=== PATIENT | male | born 1995 | race Caucasian/White ===

== ENCOUNTER 2017-02-18 12:51 | Inpatient (IN) | payer BC, MEDICAID ==
[~2017-02-18] VITALS: Ht 185.4 cm; Wt 81.4 kg
[2017-02-18 14:49] LABS: ALKALINE PHOSPHATASE 89 U/L (45-117); ALT/SGPT 37 U/L (12-78); ANION GAP 12 MEQ/L (8-16); AST/SGOT 29 U/L (15-37); BILIRUBIN,DIRECT 0.2 MG/DL (0.0-0.2); BILIRUBIN,TOTAL 0.8 MG/DL (0.2-1.0); BLOOD UREA NITROGEN 17 MG/DL (7-18); CALCIUM LEVEL 8.2 MG/DL (8.5-10.1); CARBON DIOXIDE LEVEL 23 MEQ/L (21-32); CHLORIDE LEVEL 99 MEQ/L (98-107); CREATININE FOR GFR 1.21 MG/DL (0.70-1.30); GLOMERULAR FILTRATION RATE > 60.0 (>60); GLUCOSE, FASTING 154 MG/DL (70-105); POTASSIUM SERUM 3.6 MEQ/L (3.5-5.1); SODIUM LEVEL 134 MEQ/L (136-145)
[2017-02-18 14:55] LABS: MEAN CORPUSCULAR HEMOGLOBIN 32.4 pg (27.0-33.0); MEAN CORPUSCULAR HGB CONC 34.8 g/dl (32.0-36.5); MEAN CORPUSCULAR VOLUME 93.1 fl (80.0-96.0); RED CELL DISTRIBUTION WIDTH 12.8 % (11.5-14.5)
[2017-02-18] MEDS ORDERED: MOM 30ML SUSPENSION UDC PO PRN (16:45)
[2017-02-18] MEDS ORDERED: MAALOX 30 ML SUSP *UDC PO PRN (16:45)
[2017-02-18] MEDS ORDERED: ACETAMINOPHEN TAB 650MG DOSE (2X325MG) PO PRN (16:45)
[2017-02-18 16:53] LABS: METHADONE URINE NEGATIVE (NEGATIVE)
[2017-02-18 18:06] VITALS: BP 128/61
[2017-02-18] MEDS: NICOTINE 21MG/24HR 1 EA TRANSDERMAL TD SCH (18:20)
[2017-02-18] MEDS: OLANZapine ORAL DISINTEGRATING TAB 5MG PO PRN (18:28)
[2017-02-18] MEDS: traZODone 50 MG TAB PO PRN (20:43)
[2017-02-19 06:27] VITALS: BP 111/58
[2017-02-19] MEDS ORDERED: MUPIROCIN 2% OINT 22 GM TUBE TOP PRN (08:45)
--- NOTE | 2017-02-19 08:52 | HPEPDOC ---
Medical History and Physical Date of Admission February 18, 2017 at 16:34 History and Physical PCP: None ATTENDING: Dr. Mike Beckford HPI: 22yoM admitted to [facility] for unspecified depressive disorder, being medically examined today. No acute medical complaints today. Pt becomes agitated with providing history. Denies any fevers, chills, weakness, fatigue, STACK, CP, SOB, cough, palpitations, abdominal pain, N/V/D or changes in bowel or bladder habits. PMHx: Bipolar disorder anxiety depression Self-mutilation PSHX: Denies SOCHX: Resides in: [place] Marital Status: Single Kids: None Employment: Unemployed Tobacco use: 2 packs per day ETOH: One beer per week Illicit Drugs: Marijuana daily IV Drug Use: Denies Tattoos done unprofessionally: Denies FAMHX: Mother: Unknown Father: , suicide when patient was 3 years old Siblings: 3 brothers, one sister Alive, unknown Children: None Unexpected deaths due to medical reasons: None. ROS: As noted in HPI, otherwise 11pt ROS of systems reviewed and remarkable only for multiple superficial cuts chest and upper arms. PE: GEN: 22yo[M, appears stated age. Well-nourished, well developed. No acute distress. Alert and oriented x 3. Agitated throughout exam. HEENT: Normocephalic, atraumatic. Pupils are equal, round, and reactive to light. Extraocular movements are intact. No nystagmus appreciated. Sclera are nonicteric. Conjunctiva without injection. Nose midline. Nasal turbinates without bogginess. EACs both patent BL. TMs both visualized and de la torre with good cone of light, no bulging or erythema. No facial asymmetry. Moist mucous membranes. Dentition fair. Pharynx pink and moist, no cobblestoning. Neck supple , trachea midline. No lymphadenopathy or thyromegaly appreciated. CHEST: Regular rate and rhythm, +S1, +S2 LUNGS: Clear to auscultation bilaterally. No wheezes, rales, or rhonchi. Breathing appears symmetric and easy. Patient is speaking in full sentences. No accessory muscle use. ABD: Round, soft, non-tender, non-distended. +Bowel sounds throughout. No rebound or guarding. No costovertebral angle tenderness. EXT: Pulses 2+ bilaterally dorsalis pedis and radial. No lower extremity edema appreciated. SKIN: [place], dry, warm. Capillary refill <2sec. No rashes. Multiple superficial lacerations across upper chest, upper arms. Minimal erythema, no drainage. NEURO: Alert and oriented x 3. Cranial nerves III-XII are intact. No focal deficits appreciated. EKG: pending. A&P: 22yoM admitted to [facility] for unspecified depressive disorder 1. Psych. Plan per Psychiatry. Obtain baseline EKG to assure the safety of psychiatric medications as they can prolong the QT interval. 2. Nicotine dependence. Patch available. 3. Superficial lacerations. dry dressing if needed. Apply bactroban BID as needed. Monitor. 4. Follow up. No Primary Care Provider. Will attempt to establish PCP on discharge. 5. Substance use. Per psychiatry. 6. Leukocytosis. Pt asymptomatic, afebrile. Recheck CBC. 7. Hyponatremia. Recheck BMP. 8. Jaden environmental health safety manager present throughout exam. Vital Signs Vital Signs Date Time Temp Pulse Resp B/P (MAP) Pulse Ox O2 Delivery O2 Flow Rate FiO2 02/19/17 06:27 97.2 96 16 111/58 (75) 02/18/17 12:52 96 Room Air Laboratory Data Labs 24H Laboratory Tests 2 02/18/17 13:57: Anion Gap 12, Glomerular Filtration Rate > 60.0, Calcium Level 8.2L, Aspartate Amino Transf (AST/SGOT) 29, Alanine Aminotransferase (ALT/SGPT) 37, Alkaline Phosphatase 89, Total Bilirubin 0.8, Direct Bilirubin 0.2, Total Protein 6.0L, Albumin 3.0L, Albumin/Globulin Ratio 1.00, Thyroid Stimulating Hormone (TSH) 2.040, Salicylates Level < 1.7L, Acetaminophen Level 3.7L, Ethyl Alcohol Level < 0.003 02/18/17 16:18: Urine Amphetamines Screen NEGATIVE, Urine Benzodiazepines Screen NEGATIVE, Urine Opiates Screen NEGATIVE, Urine Methadone Screen NEGATIVE, Urine Barbiturates Screen NEGATIVE, Urine Phencyclidine Screen NEGATIVE, Urine Cocaine Metabolite Screen NEGATIVE, Urine Cannabinoids Screen POSITIVEH CBC/BMP Laboratory Tests 02/18/17 13:57 Red Blood Count 3.62 L, Mean Corpuscular Volume 93.1, Mean Corpuscular Hemoglobin 32.4, Mean Corpuscular Hemoglobin Concent 34.8, Red Cell Distribution Width 12.8 Home Medications No Active Prescriptions or Reported Meds Allergies Coded Allergies: No Known Allergies (Unverified , 02/18/17) Marcy Crenshaw February 19, 2017 08:52
[2017-02-19] MEDS: NICOTINE 21MG/24HR 1 EA TRANSDERMAL TD SCH (09:53)
[2017-02-19 10:24] LABS: ANION GAP 4 MEQ/L (8-16); BLOOD UREA NITROGEN 10 MG/DL (7-18); CALCIUM LEVEL 9.3 MG/DL (8.5-10.1); CARBON DIOXIDE LEVEL 34 MEQ/L (21-32); CHLORIDE LEVEL 106 MEQ/L (98-107); CREATININE FOR GFR 1.28 MG/DL (0.70-1.30); GLOMERULAR FILTRATION RATE > 60.0 (>60); GLUCOSE, FASTING 66 MG/DL (70-105); SODIUM LEVEL 144 MEQ/L (136-145)
[2017-02-19 10:25] LABS: POTASSIUM SERUM 5.3 MEQ/L (3.5-5.1)
[2017-02-19 12:14] LABS: MEAN CORPUSCULAR HEMOGLOBIN 29.8 pg (27.0-33.0); MEAN CORPUSCULAR HGB CONC 34.4 g/dl (32.0-36.5); RED CELL DISTRIBUTION WIDTH 12.8 % (11.5-14.5); WHITE BLOOD COUNT 5.5 K/mm3 (4.0-10.0)
[2017-02-19 12:26] LABS: MEAN CORPUSCULAR VOLUME 87.6 fl (80.0-96.0)
[2017-02-19 18:14] VITALS: BP 136/74
[2017-02-19] MEDS: traZODone 50 MG TAB PO PRN (20:41)
[2017-02-19] MEDS: OLANZapine ORAL DISINTEGRATING TAB 5MG PO PRN (20:42)
[2017-02-19] MEDS ORDERED: risperiDONE 0.5 MG TAB PO PRN (22:30)
[2017-02-19] MEDS ORDERED: risperiDONE 2 MG TAB PO PRN (22:30)
--- NOTE | 2017-02-19 22:32 | MHHPEPDOC ---
[facility] History & Physical History and Physical DATE OF ADMISSION: February 18, 2017 at 16:34 LEGAL STATUS AT ADMISSION: 9.39 CHIEF COMPLAINT: "I just couldn't stop myself from cutting" HISTORY OF THE PRESENT ILLNESS: The patient a 22-year-old man presented to [facility] complaining that he was becoming more intensely involved in cutting point that he was worried that he was suicidal. He described that he was "not doing too good" and assess chief technology officer to bring him in for evaluation. He described that he become increasingly more anxious and had begun cutting 2 extreme degrees in order to soothe himself from his increasingly intolerable anxiety. He describes on circumstances by which he moved up to [facility] from [place], he described that he'd been speaking to a woman online and subsequently moved here to be with her but found that she was living with "crackheads". Describe that he eventually became homeless when they were evicted and was prosecuted for burglary he was sleeping in a abandoned house reportedly. He describes have defaulted with episodes of emotional apathy and depersonalization. PSYCHIATRIC ROS: Affective: The patient denies any episodes of unprovoked depressed mood associated with neurovegetative symptoms lasting longer than 2 weeks with symptoms present nearly everyday. The patient denies any episodes of euphoria/dysphoria associated with decreased need for sleep, hedonism, talkatively or impulsivity lasting longer than 5 days. Anxiety: patient does have elevated worry associated with discrete episodes panic the realization, depersonalization and doom. Trauma: the patient describes having a long history of neglect, associate with hypervigilance, remembrance and negative cognition about the future. Psychosis: patient does not appear overtly psychotic but endorse his own "inner world", he appears to have good reality testing in regards this. He denies any auditory or visual hallucinations. Personality: the patient screams equivalently positive for low functioning schizoid personality PAST PSYCHIATRIC HISTORY: Prior Psychiatric Diagnosis: depression, bipolar and anxiety as well as dissociation disorder Previous admissions: describes and for missions in the past when he was a child , with time at resident treatment facility Current Medications: none Suicide attempts: denies Psychotropic Medication History: extra numbers of medications including Seroquel , Concerta, Adderall and clonidine that is able to name. ALLERGIES: Please see below. FAMILY PSYCHIATRIC HISTORY: describes father was a schizophrenic killed himself in assisted. SOCIAL HISTORY: Early Relations:/development: character is very early abandonment at age 2 his mother, who was 14 when she had him abandon him to be found by the state. He grew up in foster care primarily. -sibling order: oldest of 3 brothers -Paternal relationships: he never knew his father, but carried around his suicide note that he eventually received from his grandmother. His mother was uninvolved in his life until he was 18. Education: graduate high school Occupational: unemployed Legal: currently on probation for burglary Martial: unmarried Economic: no social supports or social contact worker Supports: no supports the area where primary support is his grandmother Abuse/trauma: severe neglect, but denies overt physical, emotional or sexual abuse SUBSTANCE ABUSE HISTORY: smokes one pack a day of cigarettes, smokes marijuana whenever he is able to and drink socially. He denies the other illicit drugs. MEDICAL HISTORY: Severe scarring from long-term cutting MENTAL STATUS EXAMINATION: General: mildly disheveled Speech: coherent Thought processes: coherent Thought content: imaginative thoughts Abstract reasoning, and computation: intact Description of associations: intact Description of abnormal or psychotic thoughts:Denies any suicidal or homicidal ideation. Denies any auditory or visual hallucinations. Does not appear to be responding to internal stimuli. Does not appear to be endorsing any bizarre or paranoid ideation. Judgment: limited Insight: limited Orientation: alert and oriented 3 Recent and remote memory: intact Attention span and concentration: intact Fund of knowledge: adequate Mood: "okay" Affect: anxious dysphoric DIAGNOSES: 1. Unspecified anxiety disorder 2. Unspecified trauma/stressor related disorder 3. Unspecified personality disorder ASSESSMENT: a 22-year-old man with an unusual set of symptoms presents the [facility] for treatment after he was concerned with suicidal ideation. His symptomatology is quite complex and would likely need further outpatient testing to understand appropriately. PROBLEM LIST: 1. Anxiety 2. Depression 3. Substance use INITIAL TREATMENT PLAN: 1. Patient was admitted on a 9.39 legal status. 2. Complete history was obtained. 3. With patients permission, family will be contacted and database will be expanded. 4. Patients medication regimen will be reviewed and changed accordingly. -Will start risperidone 0.5 mg PRN anxiety 5. Patient will be provided with protected environment. 6. Patient will be treated with individual, group, and milieu therapies. 7. Patient will receive supportive psych-education. 8. Discharge planning will commence immediately. 9. Outpatient follow-up treatment will be strongly recommended. 10. The initial treatment plan will focus initially on: further diagnostic evaluation ESTIMATED LENGTH OF STAY: 1-5 DAYS. TIME SPENT COUNSELING AND COORDINATING INITIAL CARE: 50 minutes. Laboratory Data 24H Labs Laboratory Tests 2 02/19/17 09:51: Anion Gap 4L, Glomerular Filtration Rate > 60.0, Blood Urea Nitrogen 10, Creatinine 1.28, Sodium Level 144#, Potassium Level 5.3H, Chloride Level 106, Carbon Dioxide Level 34H, Calcium Level 9.3 CBC/BMP Laboratory Tests 02/19/17 09:51 Calcium Level 9.3 02/19/17 11:00 Red Blood Count 5.23, Mean Corpuscular Volume 87.6 #, Mean Corpuscular Hemoglobin 29.8, Mean Corpuscular Hemoglobin Concent 34.4, Red Cell Distribution Width 12.8 Medications No Active Prescriptions or Reported Meds Allergies Coded Allergies: No Known Allergies (Unverified , 02/18/17) GME ATTESTATION My preceptor for this patient encounter was physically present in the building during the encounter and was fully available. As needed, all aspects of the patient interview, examination, medical decision making process, and medical care plan development were reviewed and approved by the preceptor. Preceptor is aware and concurs with the plan as stated in the body of this note and will attest to such by his/her cosignature. JUNIOR THOMPSON DO February 19, 2017 22:32
[2017-02-20 06:52] VITALS: BP 138/63
[2017-02-20] MEDS: NICOTINE 21MG/24HR 1 EA TRANSDERMAL TD SCH (11:55)
[2017-02-20] MEDS: OLANZapine ORAL DISINTEGRATING TAB 5MG PO PRN (15:52)
--- NOTE | 2017-02-20 17:15 | MHIPNPDOC ---
[facility] Progress Note Progress Note INTERVAL HISTORY: Medication Side effects: Denies, except for sleepiness but he admits that he has been very tired and he hasn't slept on a bed for several months. He feels replenished after sleeping for several hours. Behavior: Not violent, not aggressive. Hasn't hurt himself nor others. Group Attendance: He failed to attend groups today because he slept too much Psychiatric Symptom change: He is more engaging, less guarded, less isolated. VITAL SIGNS: See below. NEW TEST RESULTS: See below CURRENT MEDICATIONS: See below. MENTAL STATUS EXAMINATION: General: Alert, cooperative, dressed in hospital clothes with good hygiene and good eye contact Speech: normal Thought processes: Intact Thought content: Goal directed, motivated for change and for staying in [place]. Talks about getting an apartment over here and getting established in this area. Abstract reasoning, and computation: Good Description of associations: Not loose Description of abnormal or psychotic thoughts: Not present Judgment: Slightly improved Insight: Slightly improved Orientation: Oriented 3 Recent and remote memory: Intact Attention span and concentration: Good Fund of knowledge: Very good Mood: "I feel much better" Affect: Less depressed, less anxious, less distant DIAGNOSES: 1. Schizoid personality disorder. 2. Borderline personality. 3. . ASSESSMENT: Patient has had a good response to medications. He has a positive attitude, is motivated because social media intern communicated to him that she might be able to find him an apartment to live and that takes away much of the anxiety that was overwhelming him Management PLAN: Will continue hospitalization until patient is stable enough to be discharged. We'll continue current medications. Medications: Zyprexa 5 mg by mouth every 4 hours when necessary for anxiety and agitation Psychotherapy: Will encourage him to attend groups Social: -- Misc: -- Disposition: He needs to continue at the inpatient mental health unit until he becomes stabilized with medications and psychotherapy TIME SPENT: 20 minutes. Vital Signs Vital Signs Date Time Temp Pulse Resp B/P (MAP) Pulse Ox O2 Delivery O2 Flow Rate FiO2 02/20/17 06:52 97.7 50 14 138/63 (88) Room Air 02/18/17 12:52 96 Laboratory Data CBC/BMP Laboratory Tests 02/20/17 13:11 Current Medications Current Medications Acetaminophen (Tylenol Tab) 650 mg Q6HP PRN PO HEADACHE or DISCOMFORT; Start at 16:45; Stop 03/20/17 at 16:44 Al Hydrox/Mg Hydrox/Simethicone (Mylanta) 30 ml Q4HP PRN PO HEARTBURN/ INDIGESTION; Start 02/18/17 at 16:45; Stop 03/20/17 at 16:44 Home Med (Med Rec Complete!) ASDIRECTED XX ; Start 02/18/17 at 13:30; Stop at 13:30; Status DC Magnesium Hydroxide (Milk Of Magnesia) 30 ml DAILYPRN PRN PO CONSTIPATION; Start 02/18/17 at 16:45; Stop 03/20/17 at 16:44 Mupirocin (Bactroban 2% Ointment) 1 dose BID PRN TOP REDNESS/IRRITATION; Start 02/19/17 at 08:45; Stop 03/21/17 at 08:44 Nicotine (Nicoderm Cq 21mg) 1 patch DAILY TD Last administered on 02/20/17 11: 55; Start 02/18/17 at 09:00; Stop 03/20/17 at 08:59 Olanzapine (ZyPREXA ZYDIS) 5 mg Q4HP PRN PO ANXIETY/AGITATION Last administered on 02/20/17 15:52; Start 02/18/17 at 18:15; Stop 03/20/17 at 18:14 Risperidone (RisperDAL) 0.5 mg Q6HP PRN PO anxiety; Start 02/19/17 at 22:30; Stop 03/21/17 at 22:29 Risperidone (RisperDAL) 2 mg Q6HP PRN PO anxiety; Start 02/19/17 at 22:30; Stop 02/19/17 at 22:30; Status DC Trazodone HCl (Desyrel) 50 mg QHSP PRN PO INSOMNIA Last administered on 20:41; Start 02/18/17 at 16:45; Stop 03/20/17 at 16:44 Allergies Coded Allergies: No Known Allergies (Unverified , 02/18/17) DENNIS HIGH MD Feb 20, 2017 17:15
[2017-02-20 18:00] VITALS: BP 146/77
--- NOTE | 2017-02-20 20:58 | ECGEPIP ---
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 NONSPECIFIC T-WAVE ABNORMALITY Electronically Signed On 02-20-2017 20:58:01 EDT by Mike Melchor
[2017-02-20] MEDS: traZODone 50 MG TAB PO PRN (21:00)
[2017-02-21 06:00] VITALS: BP 126/61
[2017-02-21] MEDS: NICOTINE 21MG/24HR 1 EA TRANSDERMAL TD SCH (09:24)
[2017-02-21 18:00] VITALS: BP 136/70
[2017-02-21] MEDS: traZODone 50 MG TAB PO PRN (21:05)
--- NOTE | 2017-02-21 21:10 | MHIPNPDOC ---
[facility] Progress Note Progress Note DATE OF SERVICE: 02/21/17 INTERVAL HISTORY: Medication Side effects: the patient reports no side effects from the risperidone as is not been taking it. Behavior/events: the patient has become more engaged in the [place] and more social. Group Attendance: has attended groups today Psychiatric Symptoms: reports that his intrusive thoughts of his face covered in blood still are problematic. Describes asleep is more normalized and that his mood is more elevated since finding out he will go to mental health housing. VITAL SIGNS: See below. NEW TEST RESULTS: See below CURRENT MEDICATIONS: See below. MENTAL STATUS EXAMINATION: General: Well dressed with good hygiene Speech: Spontaneous and fluid Thought processes: Linear and logical Thought content: rife with thoughts of the occult Abstract reasoning, and computation: Intact Description of associations: Intact Description of abnormal or psychotic thoughts: makes no threats for himself or others. Denies any auditory or visual hallucinations. Does appear to be responding to internal stimuli at times. Judgment: limited Insight: limited Orientation: Alert and orientated 3 Recent and remote memory: Intact Attention span and concentration: Intact Fund of knowledge: Adequate Mood: "okay" Affect: Euthymic with a full range DIAGNOSES: 1. Unspecified psychotic disorder. 2. Unspecified trauma/stress related disorder. 3. Sadomasochistic tendencies. ASSESSMENT: stabilizing MANAGEMENT PLAN: Medications: discontinue risperidone and start Abilify 2.5 mg nightly to control intrusive thoughts. Informed consent completed. Psychotherapy: encourage attendance Social: discharge mental health housing next week Misc: none Disposition: The patient will need of further inpatient stay to address intrusive thoughts and disposition needs. TIME SPENT: 25 minutes. Vital Signs Vital Signs Date Time Temp Pulse Resp B/P (MAP) Pulse Ox O2 Delivery O2 Flow Rate FiO2 02/21/17 18:00 98.9 78 16 136/70 (92) 02/20/17 06:52 Room Air 02/18/17 12:52 96 Current Medications Current Medications Acetaminophen (Tylenol Tab) 650 mg Q6HP PRN PO HEADACHE or DISCOMFORT; Start at 16:45; Stop 03/20/17 at 16:44 Al Hydrox/Mg Hydrox/Simethicone (Mylanta) 30 ml Q4HP PRN PO HEARTBURN/ INDIGESTION; Start 02/18/17 at 16:45; Stop 03/20/17 at 16:44 Aripiprazole (AbiLIFY) 2.5 mg QHS PO Last administered on 02/21/17 21:05; Start 02/21/17 at 21:00; Stop 03/23/17 at 20:59 Home Med (Med Rec Complete!) ASDIRECTED XX ; Start 02/18/17 at 13:30; Stop at 13:30; Status DC Magnesium Hydroxide (Milk Of Magnesia) 30 ml DAILYPRN PRN PO CONSTIPATION Last administered on 02/21/17 11:32; Start 02/18/17 at 16:45; Stop 03/20/17 at 16:44 Mupirocin (Bactroban 2% Ointment) 1 dose BID PRN TOP REDNESS/IRRITATION; Start 02/19/17 at 08:45; Stop 03/21/17 at 08:44 Nicotine (Nicoderm Cq 21mg) 1 patch DAILY TD Last administered on 02/21/17 09: 24; Start 02/18/17 at 09:00; Stop 03/20/17 at 08:59 Olanzapine (ZyPREXA ZYDIS) 5 mg Q4HP PRN PO ANXIETY/AGITATION Last administered on 02/20/17 15:52; Start 02/18/17 at 18:15; Stop 03/20/17 at 18:14 Risperidone (RisperDAL) 0.5 mg Q6HP PRN PO anxiety; Start 02/19/17 at 22:30; Stop 02/21/17 at 17:55; Status DC Risperidone (RisperDAL) 2 mg Q6HP PRN PO anxiety; Start 02/19/17 at 22:30; Stop 02/19/17 at 22:30; Status DC Trazodone HCl (Desyrel) 50 mg QHSP PRN PO INSOMNIA Last administered on 21:05; Start 02/18/17 at 16:45; Stop 03/20/17 at 16:44 Allergies Coded Allergies: No Known Allergies (Unverified , 02/18/17) GME ATTESTATION My preceptor for this patient encounter was physically present in the building during the encounter and was fully available. As needed, all aspects of the patient interview, examination, medical decision making process, and medical care plan development were reviewed and approved by the preceptor. Preceptor is aware and concurs with the plan as stated in the body of this note and will attest to such by his/her cosignature. JUNIOR THOMPSON DO Feb 21, 2017 21:10
[2017-02-22 06:04] VITALS: BP 122/53
[2017-02-22] MEDS: NICOTINE 21MG/24HR 1 EA TRANSDERMAL TD SCH (09:27)
[2017-02-22] MEDS: OLANZapine ORAL DISINTEGRATING TAB 5MG PO PRN (15:55)
[2017-02-22 18:01] VITALS: BP 121/60
[2017-02-22] MEDS: traZODone 50 MG TAB PO PRN (20:34)
--- NOTE | 2017-02-23 01:53 | IPN ---
DATE OF SERVICE: 02/22/2017 The patient today states that he continues to feel very anxious. He continues to have some suicidal thoughts, but no intent and he is able to contract for safety. He says that he slept poorly. He is having very vivid dreams. MENTAL STATUS EXAMINATION: He is alert and oriented times three. Eye contact is fair. Psychomotor activity is decreased. There is no formal thought disorder noted. He is verbally spontaneous. His mood is anxious. Affect is full range and appropriate. He is not psychotic. He continues to have some suicidal ideations. He is not homicidal. Concentration fair. Memory intact. Insight and judgment poor. DIAGNOSES: 1. Other specified anxiety disorder. 2. Borderline personality disorder. 3. Schizoid personality disorder. TREATMENT PLAN: At this point, we will further observe and evaluate this patient for continued anxiety and continued suicidal thoughts. We will continue to titrate his medications as indicated.
[2017-02-23 06:38] VITALS: BP 122/59
[2017-02-23] MEDS: NICOTINE 21MG/24HR 1 EA TRANSDERMAL TD SCH (08:37)
[2017-02-23 18:00] VITALS: BP 130/69
[2017-02-23] MEDS: traZODone 50 MG TAB PO PRN (20:19)
[2017-02-24 06:00] VITALS: BP 124/73
[2017-02-24] MEDS: NICOTINE 21MG/24HR 1 EA TRANSDERMAL TD SCH (08:52)
[2017-02-24 18:00] VITALS: BP 141/74
[2017-02-24] MEDS: QUEtiapine FUMARATE 25 MG TAB PO SCH (20:26)
--- NOTE | 2017-02-24 21:00 | IPN ---
DATE: 02/24/2017 The patient stated that he feels very well, especially after he got to know that he will get an apartment on Friday when he gets discharged from the unit. He says that this takes a lot of anxiety out of him. He denies feeling suicidal or homicidal. On the days that he has felt the urge at times to cut himself, he has been able to control himself. He continues to describe very vivid dreams. MENTAL STATUS EXAMINATION: Alert and oriented times three, with eye contact, normal speech. Thought process is intact. Thought content is negative for suicidal ideation, homicidal ideation or thought disorder. Mood and affect are not anxious and not depressed as he was when he was admitted. There is a little of anxiety, but it has decreased. His depressive symptoms also have decreased. He denies homicidal thoughts, denies suicidal thoughts, but admits that at times he feels the urge to cut himself. Attention and concentration are fair, memory recent and remote are intact. His insight and judgment are slowly improving. DIAGNOSES: 1. Unspecified anxiety disorder. 2. Borderline personality disorder. 3. Schizoid personality disorder. TREATMENT PLAN: The patient will continue to receive his current medications except for trazodone, which was discontinued because he stated that he did not like the side effects and he felt that it was not helping him sleep. Because he did not feel that trazodone was helping him sleep, he was started on Seroquel today on 75 mg by mouth at bedtime (q.h.s.) hoping that this medication will help also with his mood. Will followup tomorrow and hopefully he will continue to be stable until he is discharged on Friday. Will followup.
[2017-02-25 06:32] VITALS: BP 122/57
[2017-02-25] MEDS: NICOTINE 21MG/24HR 1 EA TRANSDERMAL TD SCH (08:14)
[2017-02-25] MEDS: OLANZapine ORAL DISINTEGRATING TAB 5MG PO PRN (10:59)
[2017-02-25] MEDS ORDERED: OLAN5ZYD PO (11:38)
[2017-02-25] MEDS ORDERED: QUET1TAB7 PO (11:38)
[2017-02-25] MEDS ORDERED: MUPI2OI TOP (11:38)
[2017-02-25] MEDS ORDERED: RISP0.5T16 PO (15:55)
[2017-02-25] MEDS: risperiDONE 0.5 MG TAB PO SCH ×2 (16:04→20:24)
[2017-02-25 18:00] VITALS: BP 132/62
[2017-02-25] MEDS: QUEtiapine FUMARATE 25 MG TAB PO SCH (20:24)
--- NOTE | 2017-02-25 21:07 | IPN ---
DATE: 02/25/2017 Evaluated the patient for the following problems: 1. Unspecified depressive disorder. 2. Borderline personality disorder. 3. Rule out schizoid personality disorder. The patient reported today feeling good and optimistic about his future. He denied having suicidal or homicidal thoughts. Denied having delusional thoughts and denied having auditory and visual hallucinations. However, he reported having a panic attack during one of the groups that he attended when he was painting something in red color. At that moment, he says that he perceived having his arms and face covered in blood, which is something that he has persistently said that he dreams about. He said that he felt very uneasy with that feeling, with that perception, and he developed the panic attack. For that reason, he abandoned the group. MENTAL STATUS EXAMINATION: The patient was alert and oriented times three. Pleasant, cooperative with good eye contact. His speech was normal. His thought process was intact. His thought content was about how he was going to handle his future life and living on his own in [place]. He denied having delusional thoughts, but admitted to feel slightly anxious after he had his panic attack. His attention and concentration were fair. His recent and remote memory were fair. His insight, judgment and impulse control have improved. MANAGEMENT PLAN: The patient will be discharged tomorrow to [facility] and they will be able to place him at an apartment once they have one available for him. In the meantime, he will have to stay at a hotel where he will have to wait until it is time for him to go to his apartment. He is going to be discharged on the following medications: - olanzapine 5 mg every four hours as needed for anxiety and agitation - Seroquel 75 mg by mouth at night - Risperdal 0.5 mg by mouth three times a day The patient will be reassessed tomorrow before he gets discharged and make sure that he is emotionally stable and that he is not a danger to himself or others. We will followup. MARITZA
[2017-02-26 05:56] VITALS: BP 131/66
[2017-02-26] MEDS: risperiDONE 0.5 MG TAB PO SCH (08:24)
[2017-02-26] MEDS: NICOTINE 21MG/24HR 1 EA TRANSDERMAL TD SCH (08:24)
--- NOTE | 2017-02-26 10:28 | MHDSPDOC ---
[facility] Discharge Summary Discharge Summary DATE OF ADMISSION: February 18, 2017 at 16:34 DATE OF DISCHARGE: February 26/2017 DISCHARGE DIAGNOSES: 1. Borderline personality disorder 2. PTSD REASON FOR ADMISSION: Patient was admitted because he he brought himself into the emergency room as he has been cutting himself more than he usually does, because his anxiety had increased too much due to the fact that he was homeless , on probation, jobless and with no social or family support in this area. CONSULTANTS INVOLVED: None TREATMENT AND PROGRESS ON THE UNIT : While at the unit the patient described feeling detached from himself in numerous locations and feeling as if his surroundings were surreal. He stated he cut himself lately almost automatically and when he didn't he was "numb". He stated that he had a previous psychiatric history and that he has been told he had different diagnoses. Some of those diagnoses were schizoaffective personality disorder, bipolar disorder and he was in treatment for ADHD with Adderall and Concerta when he was a child. His father had is a friend and and committed suicide when the patient was 3 years old and left a note for the patient that he did receive until he was a teenager after his grandmother gave it to him. His mother abandoned him shortly after his father committed suicide and he grew up in foster homes . Establish contact with mother until he was a teenager. For a long time he has been homeless and he moved to [place] with a friend without knowing that this person was doing drugs and lived with several other people that had drug problems. He stated that he was arrested by the police because they thought he was stealing something from that house he was living at and now he is on probation. He admits to have used marijuana and he thinks he wont quit using it. He has stated that he has has suicidal ideation throughout his life but he has never tried to kill himself, he has successfully blocked those thoughts and get them out of his mind. He has poor for family and social support, he has lived with his grandmother several times and keeps in touch with her and with her mother live in [place] but he doesn't want to return over there because he thinks life in various more expensive that in [place] and he has more chances of succeeding over here. He has responded well to Zyprexa, Risperdal and Abilify. His impulse as having under control and he has felt the urge to cut sometimes but because he is in a restraining environment at the inpatient mental health unit and because he is on medications he has been attempted to do it. Yesterday he had a panic attack while attending one of the groups where they were painting and he got some red paint on his arm and he imagined once again that he was court involvement and has blood on his face. That made him feel uneasy and developed a panic attack but he was able to handle the situation by applying breathing techniques to control it. The patient was evaluated today and he was excited about leaving, he is goal oriented, has plans for the future and was not in danger to himself or others. He is stable enough to be discharged. HOSPITAL COURSE: As above DISCHARGE ASSESSMENT: The patient is stable, goal oriented, motivated and happy about the possibility of getting an apartment where he can leave and stay out of the streets. He is willing to comply with his medications and with his appointments. He will have to go to his deportation officer tomorrow and he has been set up for outpatient treatment appointments. He is stable, his insight, judgment and impulse control have improved. He is not suicidal, not homicidal. He is not in danger to self or others. MENTAL STATUS EXAMINATION ON DISCHARGE: Patient is a 22-year old male, who is alert, oriented 3, pleasant and cooperative with good eye contact. Speech is and normal. Language skills are fair. Thought processes including: Intact. Thought content: Goal directed, motivated to start a new life. Abstract reasoning, and computation: Intact. Description of associations: Not loose. Description of abnormal or psychotic thoughts: He denies auditory and visual hallucinations, denies delusional thoughts, denies suicidal ideation and homicidal ideation at the time of this evaluation. Judgment: Improved. Insight: Improved. Orientation to oriented 3. Recent and remote memory: Intact. Attention span and concentration: Good. Language: Fluid, normal. Fund of knowledge: Adequate. Mood: "I'm so excited to start a new life". Affect: Euthymic, bright. MEDICATIONS ON DISCHARGE: -Zyprexa 5 mg by mouth every 4 hours when necessary for anxiety/agitation. -Risperdal 0.5 mg by mouth TID for impulse control and to help him cope with PTSD. -Seroquel 75 mg by mouth daily at bedtime for sleep. PLAN/FOLLOWUP ARRANGEMENTS: Mental health appointments at the [facility] on March 26 and will follow-up for medical problems at [facility] outpatient clinic. The amount of time spent in the coordination of care for this patient was approximately 40 minutes. Vital Signs/I&Os Vital Signs Date Time Temp Pulse Resp B/P (MAP) Pulse Ox O2 Delivery O2 Flow Rate FiO2 02/26/17 05:56 98.0 52 20 131/66 (87) 02/20/17 06:52 Room Air Medications Scheduled Quetiapine Fumerate (Quetiapine Fumarate) 25 Mg Tab, 75 MG PO QHS for MOOD/ PSYCHOSIS, #21 Risperidone (Risperdal) 0.5 Mg Tab, 0.5 MG PO TID for IMPULSE CONTROL, #15 Scheduled PRN Mupirocin (Mupirocin) 2 % Oin, 1 DOSE TOP BID PRN for REDNESS/IRRITATION, #1 Olanzapine (Olanzapine Odt) 5 Mg Tab, 5 MG PO Q4HP PRN for ANXIETY/AGITATION, # 21 Allergies Coded Allergies: No Known Allergies (Unverified , 02/18/17) DENNIS HIGH MD Feb 26, 2017 10:28
== END 2017-02-26 10:50 | disposition home or self-care (01) | DRG 752 ==
LOC: M ED 14:01 → M ED INP 16:34 → M PSY 17:04
PROVIDERS: ADMIT Psychiatry & Neurology Psychiatry; ATTEND Psychiatry & Neurology Psychiatry
DX: F60.1 Schizoid personality disorder (principal); E87.1 Hypo-osmolality and hyponatremia; F60.3 Borderline personality disorder; F43.10 Post-traumatic stress disorder, unspecified; F17.210 Nicotine dependence, cigarettes, uncomplicated

== ENCOUNTER → 2017-05-22 | Outpatient (RCR) | payer BC, MEDICAID ==
[~2017-05-22] MED LIST: MUPI2OI TOP; OLAN5ZYD PO; QUET1TAB7 PO; RISP0.5T21 PO
== END ==
LOC: M OUTALCOH 05-02 09:32
PROVIDERS: ATTEND Psychiatry & Neurology Psychiatry
DX: F12.20 Cannabis dependence, uncomplicated (principal); F16.20 Hallucinogen dependence, uncomplicated; F17.200 Nicotine dependence, unspecified, uncomplicated

== ENCOUNTER 2017-06-19 09:00 | Outpatient (RCR) | payer BC, MEDICAID | END 2017-06-21 | LOC: M OUTALCOH 09:00 | PROVIDERS: ATTEND Psychiatry & Neurology Psychiatry | DX: F12.20 Cannabis dependence, uncomplicated (principal); F16.20 Hallucinogen dependence, uncomplicated; F17.200 Nicotine dependence, unspecified, uncomplicated ==

== ENCOUNTER → 2017-08-21 | Outpatient (RCR) | payer BC, MEDICAID | LOC: M OUTALCOH 15:36 | PROVIDERS: ATTEND Psychiatry & Neurology Psychiatry | DX: F12.20 Cannabis dependence, uncomplicated (principal); F16.20 Hallucinogen dependence, uncomplicated; F17.200 Nicotine dependence, unspecified, uncomplicated ==

== ENCOUNTER 2017-08-28 14:30 | Outpatient (RCR) | payer BC, MEDICAID | END 2017-09-21 | LOC: M OUTALCOH 14:30 | DX: F12.20 Cannabis dependence, uncomplicated (principal); F16.20 Hallucinogen dependence, uncomplicated; F17.200 Nicotine dependence, unspecified, uncomplicated ==

== ENCOUNTER 2017-09-25 15:00 | Outpatient (RCR) | payer BC, MEDICAID | END 2017-10-22 | LOC: M OUTALCOH 10-09 15:00 | DX: F12.20 Cannabis dependence, uncomplicated (principal); F16.20 Hallucinogen dependence, uncomplicated; F17.200 Nicotine dependence, unspecified, uncomplicated ==

== ENCOUNTER 2017-10-04 12:43 | Emergency (ER) | payer BC, MEDICAID ==
[2017-10-04] MEDS: CLINDAMYCIN 900 MG in APPROPRIATE DILUENT 1 EA IV (13:26)
[2017-10-04] MEDS: KETOROLAC 30 MG/ML VIAL (J1885) IV (13:27)
== END 2017-10-04 14:46 | disposition home or self-care (01) ==
LOC: M ED 12:43
DX: K04.7 Periapical abscess without sinus (principal); R51 Headache; F17.200 Nicotine dependence, unspecified, uncomplicated; Z79.899 Other long term (current) drug therapy
CPT/HCPCS: J1885

== ENCOUNTER 2017-10-07 14:30 | Inpatient (IN) | payer BC, MEDICAID ==
[2017-10-07 17:57] LABS: HEMATOCRIT 37.3 % (42.0-52.0); HEMOGLOBIN 12.9 g/dl (14.0-18.0); MEAN CORPUSCULAR HEMOGLOBIN 28.5 pg (27.0-33.0); MEAN CORPUSCULAR HGB CONC 34.6 g/dl (32.0-36.5); MEAN CORPUSCULAR VOLUME 82.3 fl (80.0-96.0); PLATELET COUNT, AUTOMATED 290 10^3/uL (150-450); RED BLOOD COUNT 4.53 10^6/uL (4.30-6.10); RED CELL DISTRIBUTION WIDTH 12.6 % (11.5-14.5); WHITE BLOOD COUNT 14.9 10^3/uL (4.0-10.0)
[2017-10-07 18:07] LABS: LACTIC ACID SEPSIS PROTOCOL 1.4 MMOL/L (0.4-2.0)
[2017-10-07 18:07] LABS: ADD MANUAL DIFFER YES; DIFF SLIDE NUMBER 337; POSITIVE MORPH POS FLAG
[2017-10-07 18:13] LABS: ANION GAP 9 MEQ/L (8-16); BLOOD UREA NITROGEN 19 MG/DL (7-18); CARBON DIOXIDE LEVEL 27 MEQ/L (21-32); CHLORIDE LEVEL 101 MEQ/L (98-107); CREATININE FOR GFR 2.02 MG/DL (0.70-1.30); GLOMERULAR FILTRATION RATE 43.8 (>60); GLUCOSE, FASTING 81 MG/DL (70-105); POTASSIUM SERUM 4.7 MEQ/L (3.5-5.1); SODIUM LEVEL 137 MEQ/L (136-145)
[2017-10-07 18:21] LABS: ATYPICAL LYMPH 2 % (0-5); BANDS 2 % (< 11); EOSINOPHILS 1 % (0-5); LYMPHOCYTES 7 % (16-52); MONOCYTES 7 % (0-8); MYELOCYTES 1 % (0-0); NEUTROPHILS 80 % (35-75)
[2017-10-07 18:22] LABS: PLATELET ESTIMATE NORMAL (NORMAL)
[2017-10-07 18:23] LABS: GIANT PLATELETS 1+
[2017-10-07] MEDS: CEFTAROLINE FOSAMIL 600 MG in APPROPRIATE DILUENT 1 EA IV (18:30)
[2017-10-07 18:32] LABS: ERYTHROCYTE SEDIMENTATION RATE 85 mm/hr (0-15)
[2017-10-07] MEDS: MORPHINE 4 MG/ML 1ML SYRINGE IV ×2 (18:34→18:56)
[2017-10-07] MEDS: SODIUM CHLORIDE 0.9% 1000 ML IV (20:30)
[2017-10-07] MEDS ORDERED: NS 1,000 ML IV (20:55)
[2017-10-07] MEDS ORDERED: PIPERACILLIN/TAZOBACTAM SOD 3.375 GM in APPROPRIATE DILUENT 1 EA IV (21:00)
[2017-10-07] MEDS: VANCOMYCIN HCL 1,000 MG, VIAL MATE ADAPTER 1 EACH in D5W 250 ML IV (21:00)
[2017-10-07] MEDS ORDERED: ONDANSETRON 4MG/2ML VIAL (J2405) IV (21:00)
[2017-10-07] MEDS ORDERED: MORPHINE 2 MG/ML 1ML SYRINGE IV (21:00)
[2017-10-07] MEDS ORDERED: AMPICILLIN SOD/SULBACTAM SOD 3 GM in D5W MINI-BAG PLUS 100 ML IV (22:00)
[2017-10-07] MEDS ORDERED: UNASYN 3 GM VIAL (22:07)
[2017-10-07] MEDS: LIDOCAINE W/EPINEPHRINE 1% 20ML VIAL As Ordered (22:07)
[2017-10-07] MEDS ORDERED: UNASYN 1.5 GM VIAL As Ordered (22:07)
[2017-10-07] MEDS: BACITRACIN OINT 30GM As Ordered (22:07)
[2017-10-07] MEDS: AMPICILLIN SOD/SULBACTAM SOD 3 GM in D5W MINI-BAG PLUS 100 ML IV (22:25)
[2017-10-07] MEDS ORDERED: KETAMINE HCL 200 MG/20 ML VIAL As Ordered (22:48)
[2017-10-07] MEDS ORDERED: fentaNYL 100 MCG/2 ML INJECTION (J3010) As Ordered (22:48)
[2017-10-07] MEDS ORDERED: MIDAZOLAM INJ 2 MG/2 ML VIAL (J2250) As Ordered (22:48)
[2017-10-07] MEDS ORDERED: LIDOCAINE 2% INJ 100 MG/5 ML SDV (FOR ANES.) As Ordered (22:48)
[2017-10-07] MEDS ORDERED: PHENYLEPHRINE INJ 10MG/ML VIAL (J2370) As Ordered (22:48)
[2017-10-07] MEDS ORDERED: PROPOFOL 200 MG/20 ML VIAL As Ordered (22:48)
[2017-10-07] MEDS ORDERED: ROCURONIUM BROMIDE 50 MG/5 ML VIAL As Ordered (22:48)
[2017-10-07] MEDS ORDERED: ETOMIDATE INJ 20MG/10ML VIAL As Ordered (22:48)
[2017-10-08] MEDS ORDERED: MIDAZOLAM INJ 2 MG/2 ML VIAL (J2250) As Ordered ×3 (00:02→10:31)
[2017-10-08] MEDS: MIDAZOLAM INJ 2 MG/2 ML VIAL (J2250) IV ×10 (00:08→23:56)
[2017-10-08] MEDS ORDERED: fentaNYL 100 MCG/2 ML INJECTION (J3010) IV (00:15)
[2017-10-08] MEDS ORDERED: ONDANSETRON 4MG/2ML VIAL (J2405) IV (00:15)
[2017-10-08 00:22] LABS: ABG BASE EXCESS -3.8 (-2.0-2.0); ABG DEVICE MECHAN. VENT; ABG HCO3 22.7 MEQ/L (22.0-26.0); ABG O2 SATURATION 98.4 % (95.0-99.0); ABG PARTIAL PRESSURE CO2 47.4 mmHg (35.0-45.0); ABG PARTIAL PRESSURE O2 124.7 mmHg (75.0-100.0); ABG STANDARD HCO3 21.3 MEQ/L (22.0-26.0); ABG TOTAL CO2 24.1 MEQ/L (22.0-29.0); ABG pH (ARTERIAL) 7.298 UNITS (7.350-7.450)
[2017-10-08] MEDS ORDERED: REFRIGERATOR IV KEYS XX ×2 (00:45→07:30)
[2017-10-08] MEDS: MIDAZOLAM HCL 100 MG in D5W 80 ML IV ×2 (01:00→01:21)
[2017-10-08] MEDS: LR 1,000 ML IV ×2 (01:19)
[2017-10-08] MEDS ORDERED: PHENYLEPHRINE HCL INJ 50 MG in D5W 500 ML IV (02:45)
[2017-10-08] MEDS: IPRATROPIUM 0.5MG/ALBUTEROL 2.5MG INH SOL UD 3ML (DUONEB)(J7620) NEB ×4 (02:53→17:43)
[2017-10-08] MEDS: SODIUM CHLORIDE 0.9% 1000 ML IV (03:46)
[2017-10-08] MEDS ORDERED: NOREPINEPHRINE 4 MG/4 ML AMP As Ordered ×3 (03:53→10:43)
[2017-10-08 03:55] LABS: LACTIC ACID SEPSIS PROTOCOL 2.3 MMOL/L (0.4-2.0)
[2017-10-08] MEDS: NOREPINEPHRINE BITARTRATE 8 MG in D5W 500 ML IV ×2 (04:00→17:26)
[2017-10-08] MEDS: VANCOMYCIN HCL 1,000 MG, VIAL MATE ADAPTER 1 EACH in D5W 250 ML IV ×2 (04:13→12:40)
[2017-10-08] MEDS: NS 1,000 ML IV ×6 (04:13→21:05)
[2017-10-08 04:47] LABS: HEMATOCRIT 28.5 % (42.0-52.0); MEAN CORPUSCULAR HEMOGLOBIN 28.3 pg (27.0-33.0); MEAN CORPUSCULAR VOLUME 85.8 fl (80.0-96.0); PLATELET COUNT, AUTOMATED 201 10^3/uL (150-450); RED BLOOD COUNT 3.32 10^6/uL (4.30-6.10); WHITE BLOOD COUNT 15.3 10^3/uL (4.0-10.0)
[2017-10-08 04:57] LABS: AMPHETAMINES LEVEL URINE NEGATIVE (NEGATIVE); BARBITURATES URINE NEGATIVE (NEGATIVE); BENZODIAZEPINES URINE POSITIVE (NEGATIVE); CANNABINOIDS URINE NEGATIVE (NEGATIVE); COCAINE METABOLITE URINE NEGATIVE (NEGATIVE); METHADONE URINE NEGATIVE (NEGATIVE); OPIATES URINE POSITIVE (NEGATIVE); PHENCYCLIDINE URINE NEGATIVE (NEGATIVE)
[2017-10-08 05:01] LABS: POS COUNT POS FLAG; POSITIVE MORPH POS FLAG
[2017-10-08 05:08] LABS: HEMOGLOBIN 9.4 g/dl (14.0-18.0)
[2017-10-08 05:14] LABS: ADD MANUAL DIFFER YES; DIFF SLIDE NUMBER 92
[2017-10-08 05:16] LABS: CK-MB VALUE MASS 2.5 NG/ML (0.0-3.6); CPK CREATINE PHOSPHOKINASE 55 U/L (39-308); MB/CK RELATIVE INDEX 4.54 (< OR =4); TROPONIN I 0.08 NG/ML (< 0.10)
[2017-10-08 05:19] LABS: ANION GAP 9 MEQ/L (8-16); BLOOD UREA NITROGEN 24 MG/DL (7-18); CALCIUM LEVEL 6.8 MG/DL (8.5-10.1); CARBON DIOXIDE LEVEL 23 MEQ/L (21-32); CHLORIDE LEVEL 106 MEQ/L (98-107); CREATININE FOR GFR 3.23 MG/DL (0.70-1.30); GLOMERULAR FILTRATION RATE 25.5 (>60); GLUCOSE, FASTING 137 MG/DL (70-105); POTASSIUM SERUM 4.9 MEQ/L (3.5-5.1); SODIUM LEVEL 138 MEQ/L (136-145)
[2017-10-08 05:30] LABS: ATYPICAL LYMPH 1 % (0-5); BANDS 3 % (< 11); EOSINOPHILS 2 % (0-5); LYMPHOCYTES 8 % (16-52); MONOCYTES 8 % (0-8); NEUTROPHILS 78 % (35-75); PLATELET ESTIMATE NORMAL (NORMAL)
[2017-10-08] MEDS ORDERED: HEPARIN SOD (PORCINE) 5000 UNITS/ML VIAL SC (06:00)
[2017-10-08] MEDS: MORPHINE 2 MG/ML 1ML SYRINGE IV ×4 (07:12→23:56)
[2017-10-08] MEDS: MATE ADAPTER IV ×4 (08:27→23:56)
[2017-10-08] MEDS: D5W IV ×4 (08:27→23:56)
[2017-10-08] MEDS: AMPICILLIN SOD IV ×4 (08:27→23:56)
[2017-10-08] MEDS: SULBACTAM SOD IV ×4 (08:27→23:56)
[2017-10-08] MEDS: PANTOPRAZOLE 40MG INJ (PROTONIX) (C9113) IV (08:28)
[2017-10-08] MEDS ORDERED: fentaNYL 100 MCG/2 ML INJECTION (J3010) As Ordered (10:31)
[2017-10-08] MEDS ORDERED: PROPOFOL 200 MG/20 ML VIAL As Ordered (10:31)
[2017-10-08 10:39] LABS: ALBUMIN 2.3 GM/DL (3.2-5.2); ALBUMIN/GLOBULIN RATIO 0.92 (1.00-1.93); ALKALINE PHOSPHATASE 77 U/L (45-117); ALT/SGPT 19 U/L (12-78); AST/SGOT 26 U/L (7-37); BILIRUBIN,TOTAL 0.8 MG/DL (0.2-1.0); CHOLESTEROL LEVEL < 50 MG/DL (< 200); CPK CREATINE PHOSPHOKINASE 53 U/L (39-308); LDH LACTATE DEHYDROGENASE 116 U/L (87-241); MAGNESIUM LEVEL 1.4 MG/DL (1.8-2.4); PHOSPHORUS LEVEL 6.6 MG/DL (2.5-4.9); TOTAL PROTEIN 4.8 GM/DL (6.4-8.2); TRIGLYCERIDES LEVEL 82 MG/DL (<150)
[2017-10-08] MEDS: CHLORHEXIDINE ORAL RINSE 0.12%/15ML 120ML BOTTLE MT ×2 (12:39→21:05)
[2017-10-08] MEDS: MAG SULF 1GM/100ML (MAG RUN) 1 GM in APPROPRIATE DILUENT 1 EA IV (14:35)
[2017-10-08] MEDS: ACETAMINOPHEN TAB 650MG DOSE (2X325MG) PO (17:26)
[2017-10-08 18:05] LABS: HEMATOCRIT 27.5 % (42.0-52.0); HEMOGLOBIN 9.2 g/dl (14.0-18.0); MEAN CORPUSCULAR HEMOGLOBIN 28.2 pg (27.0-33.0); MEAN CORPUSCULAR HGB CONC 33.5 g/dl (32.0-36.5); MEAN CORPUSCULAR VOLUME 84.4 fl (80.0-96.0); PLATELET COUNT, AUTOMATED 263 10^3/uL (150-450); RED BLOOD COUNT 3.26 10^6/uL (4.30-6.10); RED CELL DISTRIBUTION WIDTH 13.2 % (11.5-14.5); WHITE BLOOD COUNT 17.2 10^3/uL (4.0-10.0)
[2017-10-08 18:09] LABS: ADD MANUAL DIFFER YES; DIFF SLIDE NUMBER 283; POSITIVE MORPH POS FLAG
[2017-10-08 18:45] LABS: ALBUMIN 2.1 GM/DL (3.2-5.2); ANION GAP 10 MEQ/L (8-16); BLOOD UREA NITROGEN 21 MG/DL (7-18); CALCIUM LEVEL 7.5 MG/DL (8.5-10.1); CARBON DIOXIDE LEVEL 25 MEQ/L (21-32); CHLORIDE LEVEL 109 MEQ/L (98-107); CREATININE FOR GFR 2.57 MG/DL (0.70-1.30); GLOMERULAR FILTRATION RATE 33.2 (>60); GLUCOSE, FASTING 115 MG/DL (70-105); PHOSPHORUS LEVEL 5.7 MG/DL (2.5-4.9); POTASSIUM SERUM 3.6 MEQ/L (3.5-5.1); SODIUM LEVEL 144 MEQ/L (136-145)
[2017-10-08 19:06] LABS: ATYPICAL LYMPH 2 % (0-5); BANDS 3 % (< 11); BASOPHILS 1 % (0-4); LYMPHOCYTES 15 % (16-52); MONOCYTES 4 % (0-8); NEUTROPHILS 75 % (35-75); PLATELET ESTIMATE NORMAL (NORMAL)
[2017-10-08 19:07] LABS: BURR CELLS 1+; SCHISTOCYTES 1+; TOXIC GRANULATION 1+; TOXIC VACUOLATION 1+
[2017-10-08] MEDS: ALBUTEROL SULFATE 2.5 MG/0.5 ML INH NEB SOLN NEB ×2 (19:56→23:10)
[2017-10-08 20:11] LABS: VANCOMYCIN LEVEL TROUGH 26.4 UG/ML (10.0-20.0)
[2017-10-08 20:30] LABS: CK-MB VALUE MASS 13.5 NG/ML (0.0-3.6); CPK CREATINE PHOSPHOKINASE 173 U/L (39-308)
[2017-10-08 20:39] LABS: TROPONIN I 2.92 NG/ML (< 0.10)
[2017-10-09] MEDS: MIDAZOLAM INJ 2 MG/2 ML VIAL (J2250) IV ×6 (02:02→12:15)
[2017-10-09] MEDS: MORPHINE 2 MG/ML 1ML SYRINGE IV ×5 (02:03→17:07)
[2017-10-09] MEDS: NS 1,000 ML IV ×5 (02:27→20:45)
[2017-10-09] MEDS: VANCOMYCIN HCL 1,000 MG, VIAL MATE ADAPTER 1 EACH in D5W 250 ML IV (02:57)
[2017-10-09] MEDS: ALBUTEROL SULFATE 2.5 MG/0.5 ML INH NEB SOLN NEB ×6 (04:27→23:33)
[2017-10-09] MEDS: MATE ADAPTER IV ×4 (05:54→23:24)
[2017-10-09] MEDS: AMPICILLIN SOD IV ×4 (05:54→23:24)
[2017-10-09] MEDS: D5W IV ×4 (05:54→23:24)
[2017-10-09] MEDS: SULBACTAM SOD IV ×4 (05:54→23:24)
[2017-10-09] MEDS: SODIUM CHLORIDE 0.9% INJ 10 ML SYR IV ×2 (05:55→17:07)
[2017-10-09 06:16] LABS: BASO % 0.1 % (0.0-1.0); EOS # 0.1 10^3/uL (0.0-0.50); EOS % 1.1 % (0.0-3.0); HEMATOCRIT 26.3 % (42.0-52.0); HEMOGLOBIN 8.9 g/dl (14.0-18.0); IMMATURE GRANULOCYTE # 0.1 10^3/uL (0-0); LYMPH # 0.9 10^3/uL (1.5-6.5); LYMPH % 7.9 % (24.0-44.0); MEAN CORPUSCULAR HEMOGLOBIN 28.4 pg (27.0-33.0); MEAN CORPUSCULAR HGB CONC 33.8 g/dl (32.0-36.5); MONO # 0.7 10^3/uL (0.0-0.8); MONO % 5.9 % (0.0-5.0); NEUTROPHILS # 9.4 10^3/uL (1.8-7.7); PLATELET COUNT, AUTOMATED 229 10^3/uL (150-450); RED BLOOD COUNT 3.13 10^6/uL (4.30-6.10); RED CELL DISTRIBUTION WIDTH 13.3 % (11.5-14.5); WHITE BLOOD COUNT 11.2 10^3/uL (4.0-10.0)
[2017-10-09 06:45] LABS: ANION GAP 7 MEQ/L (8-16); BLOOD UREA NITROGEN 16 MG/DL (7-18); CALCIUM LEVEL 7.9 MG/DL (8.5-10.1); CARBON DIOXIDE LEVEL 27 MEQ/L (21-32); CHLORIDE LEVEL 111 MEQ/L (98-107); CREATININE FOR GFR 1.84 MG/DL (0.70-1.30); GLOMERULAR FILTRATION RATE 48.8 (>60); GLUCOSE, FASTING 105 MG/DL (70-105); POTASSIUM SERUM 3.6 MEQ/L (3.5-5.1); SODIUM LEVEL 145 MEQ/L (136-145)
[2017-10-09] MEDS: MIDAZOLAM HCL 100 MG in D5W 80 ML IV (07:03)
[2017-10-09 08:04] LABS: CK-MB VALUE MASS 8.7 NG/ML (0.0-3.6); CPK CREATINE PHOSPHOKINASE 115 U/L (39-308); MB/CK RELATIVE INDEX 7.56 (< OR =4); TROPONIN I 2.63 NG/ML (< 0.10)
[2017-10-09] MEDS: CHLORHEXIDINE ORAL RINSE 0.12%/15ML 120ML BOTTLE MT ×2 (08:10→21:27)
[2017-10-09] MEDS: PANTOPRAZOLE 40MG INJ (PROTONIX) (C9113) IV (08:11)
[2017-10-09] MEDS: PROPOFOL 1,000 MG in APPROPRIATE DILUENT 1 EA IV ×4 (09:32→19:53)
[2017-10-09 15:58] LABS: CK-MB VALUE MASS 4.1 NG/ML (0.0-3.6); CPK CREATINE PHOSPHOKINASE 75 U/L (39-308); MB/CK RELATIVE INDEX 5.46 (< OR =4)
[2017-10-09 15:59] LABS: TROPONIN I 2.32 NG/ML (< 0.10)
[2017-10-09] MEDS: ADACEL/BOOSTRIX VACCINE (DIPHTH/PERTUSS/ACELL/TETANUS)0.5ML SYR (90715) IM (21:26)
[2017-10-10] MEDS: PROPOFOL 1,000 MG in APPROPRIATE DILUENT 1 EA IV ×4 (01:33→21:25)
[2017-10-10] MEDS: NS 1,000 ML IV ×2 (01:34→05:11)
[2017-10-10] MEDS: ALBUTEROL SULFATE 2.5 MG/0.5 ML INH NEB SOLN NEB ×5 (03:07→19:28)
[2017-10-10 04:32] LABS: BASO % 0.2 % (0.0-1.0); EOS # 0.2 10^3/uL (0.0-0.50); EOS % 1.7 % (0.0-3.0); HEMATOCRIT 26.6 % (42.0-52.0); HEMOGLOBIN 8.8 g/dl (14.0-18.0); IMMATURE GRANULOCYTE # 0.1 10^3/uL (0-0); LYMPH # 1.1 10^3/uL (1.5-6.5); LYMPH % 10.9 % (24.0-44.0); MEAN CORPUSCULAR HGB CONC 33.1 g/dl (32.0-36.5); MEAN CORPUSCULAR VOLUME 84.7 fl (80.0-96.0); MONO # 0.6 10^3/uL (0.0-0.8); MONO % 5.8 % (0.0-5.0); NEUTROPHILS % 80.4 % (36.0-66.0); PLATELET COUNT, AUTOMATED 205 10^3/uL (150-450); RED BLOOD COUNT 3.14 10^6/uL (4.30-6.10); RED CELL DISTRIBUTION WIDTH 13.5 % (11.5-14.5); WHITE BLOOD COUNT 9.9 10^3/uL (4.0-10.0)
[2017-10-10 04:47] LABS: CPK CREATINE PHOSPHOKINASE 51 U/L (39-308)
[2017-10-10 04:48] LABS: CK-MB VALUE MASS 2.2 NG/ML (0.0-3.6); MB/CK RELATIVE INDEX 4.31 (< OR =4)
[2017-10-10 04:56] LABS: ALBUMIN 1.9 GM/DL (3.2-5.2); ALBUMIN/GLOBULIN RATIO 0.66 (1.00-1.93); ALKALINE PHOSPHATASE 122 U/L (45-117); ALT/SGPT 34 U/L (12-78); ANION GAP 3 MEQ/L (8-16); AST/SGOT 43 U/L (7-37); BILIRUBIN,TOTAL 0.5 MG/DL (0.2-1.0); BLOOD UREA NITROGEN 11 MG/DL (7-18); CALCIUM LEVEL 7.9 MG/DL (8.5-10.1); CARBON DIOXIDE LEVEL 29 MEQ/L (21-32); CHLORIDE LEVEL 114 MEQ/L (98-107); CHOLESTEROL LEVEL 72 MG/DL (< 200); CPK CREATINE PHOSPHOKINASE 52 U/L (39-308); CREATININE FOR GFR 1.22 MG/DL (0.70-1.30); GLOMERULAR FILTRATION RATE > 60.0 (>60); GLUCOSE, FASTING 112 MG/DL (70-105); LDH LACTATE DEHYDROGENASE 170 U/L (87-241); MAGNESIUM LEVEL 2.2 MG/DL (1.8-2.4); PHOSPHORUS LEVEL 4.2 MG/DL (2.5-4.9); POTASSIUM SERUM 3.9 MEQ/L (3.5-5.1); SODIUM LEVEL 146 MEQ/L (136-145); TOTAL PROTEIN 4.8 GM/DL (6.4-8.2); TRIGLYCERIDES LEVEL 182 MG/DL (<150)
[2017-10-10] MEDS: SULBACTAM SOD IV ×3 (05:11→17:24)
[2017-10-10] MEDS: AMPICILLIN SOD IV ×3 (05:11→17:24)
[2017-10-10] MEDS: MATE ADAPTER IV ×3 (05:11→17:24)
[2017-10-10] MEDS: D5W IV ×3 (05:11→17:24)
[2017-10-10] MEDS: SODIUM CHLORIDE 0.9% INJ 10 ML SYR IV ×2 (05:12→17:25)
[2017-10-10 05:58] LABS: ABG BASE EXCESS -3.3 (-2.0-2.0); ABG HCO3 21.2 MEQ/L (22.0-26.0); ABG O2 SATURATION 98.1 % (95.0-99.0); ABG STANDARD HCO3 21.7 MEQ/L (22.0-26.0); ABG TOTAL CO2 22.3 MEQ/L (22.0-29.0); ABG pH (ARTERIAL) 7.388 UNITS (7.350-7.450)
[2017-10-10] MEDS: MORPHINE 2 MG/ML 1ML SYRINGE IV ×5 (07:38→19:51)
[2017-10-10] MEDS: CHLORHEXIDINE ORAL RINSE 0.12%/15ML 120ML BOTTLE MT ×2 (08:47→20:51)
[2017-10-10] MEDS: PANTOPRAZOLE 40MG INJ (PROTONIX) (C9113) IV (08:47)
[2017-10-10] MEDS: D5W/0.45% SODIUM CHLORIDE 1,000 ML IV ×2 (09:00→17:25)
[2017-10-10] MEDS: METOCLOPRAMIDE INJ 10MG/2ML VIAL (J2765) IV ×3 (11:11→20:50)
[2017-10-10] MEDS: MIDAZOLAM INJ 2 MG/2 ML VIAL (J2250) IV ×4 (11:37→22:58)
[2017-10-10] MEDS: DIAPER RELIEF PASTE (DESITIN) 60GM TOP (12:00)
[2017-10-10] MEDS: LACRILUBE (AKWA TEARS) OPHTH OINT 3.5 GM OU ×2 (15:37→20:50)
[2017-10-10] MEDS: ACETAMINOPHEN TAB 650MG DOSE (2X325MG) PO (20:58)
[2017-10-11] MEDS: ALBUTEROL SULFATE 2.5 MG/0.5 ML INH NEB SOLN NEB ×6 (00:06→19:31)
[2017-10-11] MEDS: SULBACTAM SOD IV ×4 (00:39→17:39)
[2017-10-11] MEDS: AMPICILLIN SOD IV ×4 (00:39→17:39)
[2017-10-11] MEDS: D5W IV ×4 (00:39→17:39)
[2017-10-11] MEDS: MORPHINE 2 MG/ML 1ML SYRINGE IV ×4 (00:39→18:39)
[2017-10-11] MEDS: MATE ADAPTER IV ×4 (00:39→17:39)
[2017-10-11] MEDS: D5W/0.45% SODIUM CHLORIDE 1,000 ML IV (01:38)
[2017-10-11] MEDS: PROPOFOL 1,000 MG in APPROPRIATE DILUENT 1 EA IV ×2 (01:40→06:00)
[2017-10-11] MEDS: METOCLOPRAMIDE INJ 10MG/2ML VIAL (J2765) IV (02:06)
[2017-10-11] MEDS: MIDAZOLAM INJ 2 MG/2 ML VIAL (J2250) IV ×2 (02:06→03:42)
[2017-10-11] MEDS: SODIUM CHLORIDE 0.9% INJ 10 ML SYR IV ×2 (05:57→17:39)
[2017-10-11 06:07] LABS: ABG O2 SATURATION 98.4 % (95.0-99.0); ABG PARTIAL PRESSURE CO2 34.6 mmHg (35.0-45.0); ABG PARTIAL PRESSURE O2 123.7 mmHg (75.0-100.0); ABG STANDARD HCO3 22.8 MEQ/L (22.0-26.0); ABG TOTAL CO2 23.1 MEQ/L (22.0-29.0); ABG pH (ARTERIAL) 7.421 UNITS (7.350-7.450)
[2017-10-11 06:25] LABS: BASO % 0.1 % (0.0-1.0); EOS # 0.2 10^3/uL (0.0-0.50); EOS % 2.3 % (0.0-3.0); HEMATOCRIT 25.3 % (42.0-52.0); HEMOGLOBIN 8.5 g/dl (14.0-18.0); IMMATURE GRANULOCYTE # 0.2 10^3/uL (0-0); IMMATURE GRANULOCYTE % 1.8 % (0-0); LYMPH # 0.9 10^3/uL (1.5-6.5); LYMPH % 11.4 % (24.0-44.0); MEAN CORPUSCULAR HEMOGLOBIN 28.3 pg (27.0-33.0); MEAN CORPUSCULAR HGB CONC 33.6 g/dl (32.0-36.5); MEAN CORPUSCULAR VOLUME 84.3 fl (80.0-96.0); MONO # 0.7 10^3/uL (0.0-0.8); MONO % 8.2 % (0.0-5.0); NEUTROPHILS # 6.3 10^3/uL (1.8-7.7); NEUTROPHILS % 76.2 % (36.0-66.0); PLATELET COUNT, AUTOMATED 189 10^3/uL (150-450); RED CELL DISTRIBUTION WIDTH 13.4 % (11.5-14.5); WHITE BLOOD COUNT 8.3 10^3/uL (4.0-10.0)
[2017-10-11 07:03] LABS: ALBUMIN 1.9 GM/DL (3.2-5.2); ALBUMIN/GLOBULIN RATIO 0.66 (1.00-1.93); ALKALINE PHOSPHATASE 131 U/L (45-117); ALT/SGPT 32 U/L (12-78); ANION GAP 5 MEQ/L (8-16); AST/SGOT 30 U/L (7-37); BILIRUBIN,TOTAL 0.4 MG/DL (0.2-1.0); BLOOD UREA NITROGEN 10 MG/DL (7-18); CALCIUM LEVEL 7.9 MG/DL (8.5-10.1); CARBON DIOXIDE LEVEL 30 MEQ/L (21-32); CHLORIDE LEVEL 112 MEQ/L (98-107); CHOLESTEROL LEVEL 86 MG/DL (< 200); CPK CREATINE PHOSPHOKINASE 37 U/L (39-308); CREATININE FOR GFR 0.98 MG/DL (0.70-1.30); GLOMERULAR FILTRATION RATE > 60.0 (>60); GLUCOSE, FASTING 118 MG/DL (70-105); LDH LACTATE DEHYDROGENASE 173 U/L (87-241); MAGNESIUM LEVEL 1.9 MG/DL (1.8-2.4); PHOSPHORUS LEVEL 5.6 MG/DL (2.5-4.9); POTASSIUM SERUM 3.6 MEQ/L (3.5-5.1); SODIUM LEVEL 147 MEQ/L (136-145); TOTAL PROTEIN 4.8 GM/DL (6.4-8.2); TRIGLYCERIDES LEVEL 120 MG/DL (<150)
[2017-10-11] MEDS: LACRILUBE (AKWA TEARS) OPHTH OINT 3.5 GM OU (09:00)
[2017-10-11] MEDS: PANTOPRAZOLE 40MG INJ (PROTONIX) (C9113) IV (09:18)
[2017-10-11] MEDS: DIAPER RELIEF PASTE (DESITIN) 60GM TOP (09:18)
[2017-10-11] MEDS: D5W 1,000 ML IV ×2 (10:26→19:58)
[2017-10-11] MEDS: ACETAMINOPHEN TAB 650MG DOSE (2X325MG) PO (10:31)
[2017-10-11] MEDS: ONDANSETRON 4MG/2ML VIAL (J2405) IV (12:21)
[2017-10-11] MEDS: LORazepam 2 MG/ML VIAL (J2060) IV (14:50)
[2017-10-11 18:29] LABS: ANION GAP 7 MEQ/L (8-16); BLOOD UREA NITROGEN 9 MG/DL (7-18); CALCIUM LEVEL 8.2 MG/DL (8.5-10.1); CARBON DIOXIDE LEVEL 31 MEQ/L (21-32); CHLORIDE LEVEL 109 MEQ/L (98-107); GLOMERULAR FILTRATION RATE > 60.0 (>60); GLUCOSE, FASTING 121 MG/DL (70-105); POTASSIUM SERUM 4.2 MEQ/L (3.5-5.1); SODIUM LEVEL 147 MEQ/L (136-145)
[2017-10-11 18:34] LABS: ANION GAP 7 MEQ/L (8-16); BLOOD UREA NITROGEN 9 MG/DL (7-18); CARBON DIOXIDE LEVEL 31 MEQ/L (21-32); CHLORIDE LEVEL 108 MEQ/L (98-107); CPK CREATINE PHOSPHOKINASE 56 U/L (39-308); GLOMERULAR FILTRATION RATE > 60.0 (>60); GLUCOSE, FASTING 122 MG/DL (70-105); MB/CK RELATIVE INDEX 1.78 (< OR =4); POTASSIUM SERUM 4.1 MEQ/L (3.5-5.1); SODIUM LEVEL 146 MEQ/L (136-145); TROPONIN I 0.59 NG/ML (< 0.10)
[2017-10-11] MEDS: PERCOCET 5MG/325MG TAB PO (20:39)
[2017-10-12] MEDS: ALBUTEROL SULFATE 2.5 MG/0.5 ML INH NEB SOLN NEB ×6 (00:07→20:00)
[2017-10-12] MEDS: D5W IV ×4 (00:16→17:58)
[2017-10-12] MEDS: AMPICILLIN SOD IV ×4 (00:16→17:58)
[2017-10-12] MEDS: MATE ADAPTER IV ×4 (00:16→17:58)
[2017-10-12] MEDS: SULBACTAM SOD IV ×4 (00:16→17:58)
[2017-10-12] MEDS: MORPHINE 2 MG/ML 1ML SYRINGE IV ×3 (00:28→12:15)
[2017-10-12] MEDS: PERCOCET 5MG/325MG TAB PO ×3 (02:26→19:42)
[2017-10-12] MEDS: D5W 1,000 ML IV (05:46)
[2017-10-12] MEDS: SODIUM CHLORIDE 0.9% INJ 10 ML SYR IV ×5 (05:47→22:27)
[2017-10-12 06:12] LABS: BASO % 0.2 % (0.0-1.0); EOS # 0.3 10^3/uL (0.0-0.50); EOS % 2.5 % (0.0-3.0); HEMATOCRIT 29.7 % (42.0-52.0); HEMOGLOBIN 9.9 g/dl (14.0-18.0); IMMATURE GRANULOCYTE # 0.3 10^3/uL (0-0); IMMATURE GRANULOCYTE % 2.3 % (0-0); LYMPH # 1.3 10^3/uL (1.5-6.5); LYMPH % 12.4 % (24.0-44.0); MEAN CORPUSCULAR HEMOGLOBIN 27.5 pg (27.0-33.0); MEAN CORPUSCULAR HGB CONC 33.3 g/dl (32.0-36.5); MEAN CORPUSCULAR VOLUME 82.5 fl (80.0-96.0); MONO # 0.8 10^3/uL (0.0-0.8); MONO % 7.7 % (0.0-5.0); NEUTROPHILS # 8.1 10^3/uL (1.8-7.7); NEUTROPHILS % 74.9 % (36.0-66.0); PLATELET COUNT, AUTOMATED 245 10^3/uL (150-450); RED CELL DISTRIBUTION WIDTH 13.1 % (11.5-14.5); WHITE BLOOD COUNT 10.8 10^3/uL (4.0-10.0)
[2017-10-12 07:56] LABS: ALT/SGPT 47 U/L (12-78); ANION GAP 4 MEQ/L (8-16); AST/SGOT 67 U/L (7-37); BLOOD UREA NITROGEN 10 MG/DL (7-18); CALCIUM LEVEL 8.1 MG/DL (8.5-10.1); CARBON DIOXIDE LEVEL 33 MEQ/L (21-32); CHLORIDE LEVEL 107 MEQ/L (98-107); CREATININE FOR GFR 0.88 MG/DL (0.70-1.30); GLOMERULAR FILTRATION RATE > 60.0 (>60); GLUCOSE, FASTING 97 MG/DL (70-105); LDH LACTATE DEHYDROGENASE 206 U/L (87-241); PHOSPHORUS LEVEL 4.8 MG/DL (2.5-4.9); POTASSIUM SERUM 3.8 MEQ/L (3.5-5.1); SODIUM LEVEL 144 MEQ/L (136-145)
[2017-10-12 07:57] LABS: ALBUMIN 2.1 GM/DL (3.2-5.2); ALBUMIN/GLOBULIN RATIO 0.66 (1.00-1.93); ALKALINE PHOSPHATASE 138 U/L (45-117); BILIRUBIN,TOTAL 0.5 MG/DL (0.2-1.0); CHOLESTEROL LEVEL 119 MG/DL (< 200); CPK CREATINE PHOSPHOKINASE 45 U/L (39-308); MAGNESIUM LEVEL 2.2 MG/DL (1.8-2.4); TOTAL PROTEIN 5.3 GM/DL (6.4-8.2); TRIGLYCERIDES LEVEL 154 MG/DL (<150)
[2017-10-12] MEDS: PANTOPRAZOLE 40MG INJ (PROTONIX) (C9113) IV (09:18)
[2017-10-12] MEDS: DIAPER RELIEF PASTE (DESITIN) 60GM TOP (09:19)
[2017-10-12] MEDS ORDERED: LIDOCAINE W/EPINEPHRINE 1% 20ML VIAL As Ordered (11:42)
[2017-10-12] MEDS: LIDOCAINE W/EPINEPHRINE 1% 20ML VIAL SC (11:50)
[2017-10-12] MEDS ORDERED: ISOVUE-370 76% 100ML VIAL (Q9967) As Ordered (12:27)
[2017-10-12] MEDS: LIDOCAINE 2% W/ EPINEPHRINE 1.7 ML DENTAL INJ As Ordered (15:10)
[2017-10-12] MEDS ORDERED: MIDAZOLAM INJ 2 MG/2 ML VIAL (J2250) As Ordered (15:17)
[2017-10-12] MEDS ORDERED: ROCURONIUM BROMIDE 50 MG/5 ML VIAL As Ordered (15:17)
[2017-10-12] MEDS ORDERED: fentaNYL 100 MCG/2 ML INJECTION (J3010) As Ordered ×3 (15:17→16:38)
[2017-10-12] MEDS ORDERED: PROPOFOL 200 MG/20 ML VIAL As Ordered (15:17)
[2017-10-12] MEDS ORDERED: LIDOCAINE 2% INJ 100 MG/5 ML SDV (FOR ANES.) As Ordered (15:17)
[2017-10-12] MEDS ORDERED: SUCCINYLCHOLINE 100 MG/5 ML SYRINGE (J0330) As Ordered (15:18)
[2017-10-12] MEDS: LIDOCAINE 1% SDV INJ 30 ML VIAL As Ordered (15:36)
[2017-10-12] MEDS ORDERED: dexameTHASONE 4 MG/ML 1ML VIAL (J1100) As Ordered ×2 (15:36)
[2017-10-12] MEDS: LIDOCAINE W/EPINEPHRINE 1% 20ML VIAL As Ordered (15:39)
[2017-10-12] MEDS ORDERED: ONDANSETRON 4MG/2ML VIAL (J2405) As Ordered (16:02)
[2017-10-12] MEDS ORDERED: GLYCOPYRROLATE INJ 0.2 MG/ML 2 ML VIAL As Ordered (16:05)
[2017-10-12] MEDS ORDERED: NEOSTIGMINE 10 MG/10 ML VIAL (J2710) As Ordered (16:05)
[2017-10-12] MEDS: LR 1,000 ML IV (16:27)
[2017-10-12] MEDS: fentaNYL 100 MCG/2 ML INJECTION (J3010) IV ×4 (16:45→17:00)
[2017-10-12] MEDS ORDERED: ONDANSETRON 4MG/2ML VIAL (J2405) IV (16:45)
[2017-10-12] MEDS ORDERED: KETOROLAC 30 MG/ML VIAL (J1885) As Ordered (17:03)
[2017-10-12] MEDS: KETOROLAC 30 MG/ML VIAL (J1885) IV (17:05)
[2017-10-12] MEDS: MORPHINE 4 MG/ML 1ML SYRINGE IV ×3 (18:38→22:27)
[2017-10-12] MEDS: SENOKOT S TAB PO (22:26)
[2017-10-13] MEDS: SULBACTAM SOD IV ×2 (00:44→05:04)
[2017-10-13] MEDS: MORPHINE 4 MG/ML 1ML SYRINGE IV ×4 (00:44→20:52)
[2017-10-13] MEDS: MATE ADAPTER IV ×2 (00:44→05:04)
[2017-10-13] MEDS: D5W IV ×2 (00:44→05:04)
[2017-10-13] MEDS: AMPICILLIN SOD IV ×2 (00:44→05:04)
[2017-10-13] MEDS: PERCOCET 5MG/325MG TAB PO ×3 (01:41→16:58)
[2017-10-13] MEDS: ALBUTEROL SULFATE 2.5 MG/0.5 ML INH NEB SOLN NEB ×7 (03:46→23:19)
[2017-10-13] MEDS: SODIUM CHLORIDE 0.9% INJ 10 ML SYR IV ×5 (05:04→21:03)
[2017-10-13 05:34] LABS: BASO % 0.2 % (0.0-1.0); EOS % 0.2 % (0.0-3.0); HEMATOCRIT 30.3 % (42.0-52.0); HEMOGLOBIN 10.2 g/dl (14.0-18.0); IMMATURE GRANULOCYTE # 0.3 10^3/uL (0-0); IMMATURE GRANULOCYTE % 1.5 % (0-0); LYMPH # 1.2 10^3/uL (1.5-6.5); LYMPH % 6.8 % (24.0-44.0); MEAN CORPUSCULAR HEMOGLOBIN 27.9 pg (27.0-33.0); MEAN CORPUSCULAR HGB CONC 33.7 g/dl (32.0-36.5); MEAN CORPUSCULAR VOLUME 82.8 fl (80.0-96.0); MONO # 0.8 10^3/uL (0.0-0.8); MONO % 4.8 % (0.0-5.0); NEUTROPHILS # 14.9 10^3/uL (1.8-7.7); NEUTROPHILS % 86.5 % (36.0-66.0); PLATELET COUNT, AUTOMATED 280 10^3/uL (150-450); RED BLOOD COUNT 3.66 10^6/uL (4.30-6.10); RED CELL DISTRIBUTION WIDTH 12.8 % (11.5-14.5); WHITE BLOOD COUNT 17.2 10^3/uL (4.0-10.0)
[2017-10-13 05:54] LABS: ALBUMIN 2.3 GM/DL (3.2-5.2); ALBUMIN/GLOBULIN RATIO 0.72 (1.00-1.93); ALKALINE PHOSPHATASE 133 U/L (45-117); ALT/SGPT 51 U/L (12-78); ANION GAP 4 MEQ/L (8-16); AST/SGOT 56 U/L (7-37); BILIRUBIN,TOTAL 0.4 MG/DL (0.2-1.0); BLOOD UREA NITROGEN 15 MG/DL (7-18); C REACTIVE PROTEIN QUANTITATIV 7.32 MG/DL (0.00-0.30); CALCIUM LEVEL 8.4 MG/DL (8.5-10.1); CARBON DIOXIDE LEVEL 31 MEQ/L (21-32); CHLORIDE LEVEL 104 MEQ/L (98-107); CHOLESTEROL LEVEL 151 MG/DL (< 200); CPK CREATINE PHOSPHOKINASE 34 U/L (39-308); CREATININE FOR GFR 0.85 MG/DL (0.70-1.30); GLOMERULAR FILTRATION RATE > 60.0 (>60); GLUCOSE, FASTING 107 MG/DL (70-105); LDH LACTATE DEHYDROGENASE 197 U/L (87-241); MAGNESIUM LEVEL 2.3 MG/DL (1.8-2.4); PHOSPHORUS LEVEL 4.8 MG/DL (2.5-4.9); SODIUM LEVEL 139 MEQ/L (136-145); TOTAL PROTEIN 5.5 GM/DL (6.4-8.2); TRIGLYCERIDES LEVEL 184 MG/DL (<150)
[2017-10-13] MEDS: DIAPER RELIEF PASTE (DESITIN) 60GM TOP (09:00)
[2017-10-13] MEDS: SENOKOT S TAB PO ×2 (09:15→20:50)
[2017-10-13] MEDS: PANTOPRAZOLE 40MG INJ (PROTONIX) (C9113) IV (09:16)
[2017-10-13 11:08] LABS: IMMUNOGLOBULIN G 717 MG/DL (681-1648); IMMUNOGLOBULIN M 121 MG/DL (40-230)
[2017-10-13 11:55] LABS: HEPATITIS B SURFACE ANTIGEN NEGATIVE (NEGATIVE)
[2017-10-13 12:14] LABS: HEPATITIS C VIRUS ABY INDEX 0.1 INDEX (<0.8)
[2017-10-13 12:15] LABS: HEPATITIS B CORE ANTIBODY IGM NEGATIVE (NEGATIVE)
[2017-10-13 12:17] LABS: HEPATITIS A ANTIBODY IGM NEGATIVE (NEGATIVE); HIV 1&2 SCREEN CENTAUR NEGATIVE (NEGATIVE)
[2017-10-13] MEDS: PIPERACILLIN/TAZOBACTAM SOD 3.375 GM in APPROPRIATE DILUENT 1 EA IV ×2 (12:46→17:01)
[2017-10-13] MEDS: VANCOMYCIN HCL 1,000 MG, VIAL MATE ADAPTER 1 EACH in D5W 250 ML IV ×2 (14:04→15:19)
[2017-10-14] MEDS: PIPERACILLIN/TAZOBACTAM SOD 3.375 GM in APPROPRIATE DILUENT 1 EA IV ×5 (00:32→23:37)
[2017-10-14] MEDS: PERCOCET 5MG/325MG TAB PO ×3 (00:33→19:57)
[2017-10-14] MEDS: ALBUTEROL SULFATE 2.5 MG/0.5 ML INH NEB SOLN NEB ×4 (04:00→14:57)
[2017-10-14] MEDS: MORPHINE 4 MG/ML 1ML SYRINGE IV (04:13)
[2017-10-14] MEDS: SODIUM CHLORIDE 0.9% INJ 10 ML SYR IV ×5 (06:00→17:53)
[2017-10-14 06:57] LABS: BASO % 0.3 % (0.0-1.0); EOS # 0.4 10^3/uL (0.0-0.50); EOS % 3.1 % (0.0-3.0); HEMATOCRIT 31.1 % (42.0-52.0); HEMOGLOBIN 10.4 g/dl (14.0-18.0); IMMATURE GRANULOCYTE # 0.2 10^3/uL (0-0); IMMATURE GRANULOCYTE % 1.7 % (0-0); LYMPH % 16.7 % (24.0-44.0); MEAN CORPUSCULAR HEMOGLOBIN 27.7 pg (27.0-33.0); MEAN CORPUSCULAR HGB CONC 33.4 g/dl (32.0-36.5); MEAN CORPUSCULAR VOLUME 82.7 fl (80.0-96.0); MONO # 0.7 10^3/uL (0.0-0.8); MONO % 5.8 % (0.0-5.0); NEUTROPHILS # 8.5 10^3/uL (1.8-7.7); NEUTROPHILS % 72.4 % (36.0-66.0); PLATELET COUNT, AUTOMATED 319 10^3/uL (150-450); RED BLOOD COUNT 3.76 10^6/uL (4.30-6.10); RED CELL DISTRIBUTION WIDTH 12.9 % (11.5-14.5); WHITE BLOOD COUNT 11.8 10^3/uL (4.0-10.0)
[2017-10-14 07:12] LABS: ALBUMIN 2.5 GM/DL (3.2-5.2); ALBUMIN/GLOBULIN RATIO 0.71 (1.00-1.93); ALKALINE PHOSPHATASE 127 U/L (45-117); ALT/SGPT 70 U/L (12-78); ANION GAP 4 MEQ/L (8-16); AST/SGOT 77 U/L (7-37); BILIRUBIN,TOTAL 0.4 MG/DL (0.2-1.0); BLOOD UREA NITROGEN 21 MG/DL (7-18); C REACTIVE PROTEIN QUANTITATIV 4.26 MG/DL (0.00-0.30); CALCIUM LEVEL 8.5 MG/DL (8.5-10.1); CARBON DIOXIDE LEVEL 31 MEQ/L (21-32); CHLORIDE LEVEL 107 MEQ/L (98-107); CHOLESTEROL LEVEL 157 MG/DL (< 200); CPK CREATINE PHOSPHOKINASE 30 U/L (39-308); CREATININE FOR GFR 0.92 MG/DL (0.70-1.30); GLOMERULAR FILTRATION RATE > 60.0 (>60); GLUCOSE, FASTING 90 MG/DL (70-100); LDH LACTATE DEHYDROGENASE 194 U/L (87-241); MAGNESIUM LEVEL 2.1 MG/DL (1.8-2.4); PHOSPHORUS LEVEL 3.9 MG/DL (2.5-4.9); POTASSIUM SERUM 4.2 MEQ/L (3.5-5.1); SODIUM LEVEL 142 MEQ/L (136-145); TRIGLYCERIDES LEVEL 166 MG/DL (<150)
[2017-10-14] MEDS: DIAPER RELIEF PASTE (DESITIN) 60GM TOP (09:30)
[2017-10-14] MEDS: PANTOPRAZOLE 40MG INJ (PROTONIX) (C9113) IV (10:03)
[2017-10-14] MEDS: SENOKOT S TAB PO ×2 (10:03→19:56)
[2017-10-14] MEDS ORDERED: MIRALAX *UNIT DOSE* 17GM PACKET PO (10:45)
[2017-10-14] MEDS ORDERED: MORPHINE 2 MG/ML 1ML SYRINGE IV (10:45)
[2017-10-14] MEDS: ENOXAPARIN 40 MG/0.4 ML SYRINGE (J1650) SC (11:45)
[2017-10-14] MEDS: MOM 30ML SUSPENSION UDC PO (11:46)
[2017-10-14] MEDS: IBUPROFEN 400 MG TAB PO ×2 (15:07→22:05)
[2017-10-15 00:06] LABS: FREE KAPPA LIGHT CHAINS SERUM 24.6 mg/L (3.3-19.4); FREE LAMBDA LIGHT CHAINS SERUM 28.1 mg/L (5.7-26.3); KAPPA/LAMBDA RATIO SERUM 0.88 (0.26-1.65)
[2017-10-15] MEDS: PERCOCET 5MG/325MG TAB PO ×3 (04:14→18:50)
[2017-10-15] MEDS: SODIUM CHLORIDE 0.9% INJ 10 ML SYR IV ×3 (05:53→17:47)
[2017-10-15] MEDS: IBUPROFEN 400 MG TAB PO ×3 (05:53→22:55)
[2017-10-15] MEDS: PIPERACILLIN/TAZOBACTAM SOD 3.375 GM in APPROPRIATE DILUENT 1 EA IV ×3 (05:53→17:47)
[2017-10-15 06:47] LABS: ALBUMIN 2.6 GM/DL (3.2-5.2); ALT/SGPT 76 U/L (12-78); ANION GAP 9 MEQ/L (8-16); AST/SGOT 62 U/L (7-37); CALCIUM LEVEL 8.5 MG/DL (8.5-10.1); CARBON DIOXIDE LEVEL 28 MEQ/L (21-32); CHLORIDE LEVEL 106 MEQ/L (98-107); CPK CREATINE PHOSPHOKINASE 34 U/L (39-308); CREATININE FOR GFR 0.87 MG/DL (0.70-1.30); GLOMERULAR FILTRATION RATE > 60.0 (>60); MAGNESIUM LEVEL 2.3 MG/DL (1.8-2.4); POTASSIUM SERUM 4.3 MEQ/L (3.5-5.1); SODIUM LEVEL 143 MEQ/L (136-145); TOTAL PROTEIN 6.3 GM/DL (6.4-8.2)
[2017-10-15 07:11] LABS: ALKALINE PHOSPHATASE 118 U/L (45-117); BILIRUBIN,TOTAL 0.4 MG/DL (0.2-1.0); BLOOD UREA NITROGEN 19 MG/DL (7-18); GLUCOSE, FASTING 96 MG/DL (70-100); LDH LACTATE DEHYDROGENASE 233 U/L (87-241); PHOSPHORUS LEVEL 3.8 MG/DL (2.5-4.9); TRIGLYCERIDES LEVEL 150 MG/DL (<150)
[2017-10-15 07:20] LABS: CHOLESTEROL LEVEL 180 MG/DL (< 200)
[2017-10-15] MEDS: PANTOPRAZOLE 40MG INJ (PROTONIX) (C9113) IV (09:32)
[2017-10-15] MEDS: SENOKOT S TAB PO ×2 (09:32→21:50)
[2017-10-15] MEDS: ENOXAPARIN 40 MG/0.4 ML SYRINGE (J1650) SC (09:33)
[2017-10-15] MEDS: DIAPER RELIEF PASTE (DESITIN) 60GM TOP (12:42)
[2017-10-16] MEDS: PIPERACILLIN/TAZOBACTAM SOD 3.375 GM in APPROPRIATE DILUENT 1 EA IV ×5 (00:38→23:35)
[2017-10-16] MEDS: IBUPROFEN 400 MG TAB PO ×3 (06:23→21:32)
[2017-10-16] MEDS: SODIUM CHLORIDE 0.9% INJ 10 ML SYR IV ×2 (06:23→17:58)
[2017-10-16 07:03] LABS: HEMOGLOBIN 10.8 g/dl (14.0-18.0); MEAN CORPUSCULAR HEMOGLOBIN 28.1 pg (27.0-33.0); MEAN CORPUSCULAR HGB CONC 33.8 g/dl (32.0-36.5); MEAN CORPUSCULAR VOLUME 83.3 fl (80.0-96.0); PLATELET COUNT, AUTOMATED 399 10^3/uL (150-450); RED BLOOD COUNT 3.84 10^6/uL (4.30-6.10); RED CELL DISTRIBUTION WIDTH 12.7 % (11.5-14.5)
[2017-10-16 07:23] LABS: ALBUMIN 2.8 GM/DL (3.2-5.2); ALBUMIN/GLOBULIN RATIO 0.78 (1.00-1.93); ALKALINE PHOSPHATASE 118 U/L (45-117); ALT/SGPT 83 U/L (12-78); ANION GAP 5 MEQ/L (8-16); AST/SGOT 61 U/L (7-37); BILIRUBIN,TOTAL 0.3 MG/DL (0.2-1.0); BLOOD UREA NITROGEN 21 MG/DL (7-18); C REACTIVE PROTEIN QUANTITATIV 1.66 MG/DL (0.00-0.30); CALCIUM LEVEL 8.5 MG/DL (8.5-10.1); CARBON DIOXIDE LEVEL 29 MEQ/L (21-32); CHLORIDE LEVEL 105 MEQ/L (98-107); CHOLESTEROL LEVEL 179 MG/DL (< 200); COMPLEMENT C3 173 MG/DL (90-180); COMPLEMENT C4 33.5 MG/DL (10-40); CPK CREATINE PHOSPHOKINASE 29 U/L (39-308); CREATININE FOR GFR 0.93 MG/DL (0.70-1.30); GLOMERULAR FILTRATION RATE > 60.0 (>60); GLUCOSE, FASTING 91 MG/DL (70-100); LDH LACTATE DEHYDROGENASE 165 U/L (87-241); MAGNESIUM LEVEL 2.2 MG/DL (1.8-2.4); PHOSPHORUS LEVEL 4.3 MG/DL (2.5-4.9); POTASSIUM SERUM 4.3 MEQ/L (3.5-5.1); SODIUM LEVEL 139 MEQ/L (136-145); TOTAL PROTEIN 6.4 GM/DL (6.4-8.2); TRIGLYCERIDES LEVEL 157 MG/DL (<150)
[2017-10-16 08:06] LABS: FREE LAMBDA LIGHT CHAINS URINE 2.65 mg/L (0.24-6.66)
[2017-10-16] MEDS: ENOXAPARIN 40 MG/0.4 ML SYRINGE (J1650) SC (08:46)
[2017-10-16] MEDS: PERCOCET 5MG/325MG TAB PO ×2 (08:46→15:13)
[2017-10-16] MEDS: SENOKOT S TAB PO ×2 (08:46→21:00)
[2017-10-16] MEDS: PANTOPRAZOLE 40MG INJ (PROTONIX) (C9113) IV (08:46)
[2017-10-16] MEDS: DIAPER RELIEF PASTE (DESITIN) 60GM TOP (08:47)
[2017-10-16] MEDS ORDERED: INFLUENZA QUADRIVALENT PF VACCINE 0.5ML SYRINGE (90686) IM (09:00)
[2017-10-17] MEDS: PIPERACILLIN/TAZOBACTAM SOD 3.375 GM in APPROPRIATE DILUENT 1 EA IV ×4 (05:40→23:02)
[2017-10-17] MEDS: IBUPROFEN 400 MG TAB PO ×3 (05:40→22:59)
[2017-10-17] MEDS: SODIUM CHLORIDE 0.9% INJ 10 ML SYR IV ×2 (05:40→17:29)
[2017-10-17 05:56] LABS: HEMATOCRIT 32.2 % (42.0-52.0); MEAN CORPUSCULAR HEMOGLOBIN 28.1 pg (27.0-33.0); MEAN CORPUSCULAR HGB CONC 34.2 g/dl (32.0-36.5); MEAN CORPUSCULAR VOLUME 82.4 fl (80.0-96.0); PLATELET COUNT, AUTOMATED 469 10^3/uL (150-450); RED BLOOD COUNT 3.91 10^6/uL (4.30-6.10); RED CELL DISTRIBUTION WIDTH 12.7 % (11.5-14.5); WHITE BLOOD COUNT 10.4 10^3/uL (4.0-10.0)
[2017-10-17 06:23] LABS: ALBUMIN 2.8 GM/DL (3.2-5.2); ALBUMIN/GLOBULIN RATIO 0.78 (1.00-1.93); ALKALINE PHOSPHATASE 113 U/L (45-117); ALT/SGPT 66 U/L (12-78); ANION GAP 7 MEQ/L (8-16); AST/SGOT 35 U/L (7-37); BILIRUBIN,TOTAL 0.3 MG/DL (0.2-1.0); BLOOD UREA NITROGEN 20 MG/DL (7-18); C REACTIVE PROTEIN QUANTITATIV 1.35 MG/DL (0.00-0.30); CALCIUM LEVEL 8.6 MG/DL (8.5-10.1); CARBON DIOXIDE LEVEL 28 MEQ/L (21-32); CHLORIDE LEVEL 107 MEQ/L (98-107); CHOLESTEROL LEVEL 194 MG/DL (< 200); CPK CREATINE PHOSPHOKINASE 31 U/L (39-308); GLOMERULAR FILTRATION RATE > 60.0 (>60); GLUCOSE, FASTING 95 MG/DL (70-100); LDH LACTATE DEHYDROGENASE 148 U/L (87-241); MAGNESIUM LEVEL 2.2 MG/DL (1.8-2.4); PHOSPHORUS LEVEL 4.3 MG/DL (2.5-4.9); POTASSIUM SERUM 4.2 MEQ/L (3.5-5.1); SODIUM LEVEL 142 MEQ/L (136-145); TOTAL PROTEIN 6.4 GM/DL (6.4-8.2); TRIGLYCERIDES LEVEL 92 MG/DL (<150)
[2017-10-17] MEDS: DIAPER RELIEF PASTE (DESITIN) 60GM TOP (09:00)
[2017-10-17] MEDS: PANTOPRAZOLE 40MG INJ (PROTONIX) (C9113) IV (09:17)
[2017-10-17] MEDS: PERCOCET 5MG/325MG TAB PO ×2 (09:18→17:31)
[2017-10-17] MEDS: ENOXAPARIN 40 MG/0.4 ML SYRINGE (J1650) SC (09:18)
[2017-10-17] MEDS: MOM 30ML SUSPENSION UDC PO (23:01)
[2017-10-18 00:11] LABS: COMPLEMENT TOTAL (CH50) > 63 U/mL (42-60)
[2017-10-18] MEDS: IBUPROFEN 400 MG TAB PO (05:48)
[2017-10-18] MEDS: PIPERACILLIN/TAZOBACTAM SOD 3.375 GM in APPROPRIATE DILUENT 1 EA IV ×2 (05:49→12:24)
[2017-10-18] MEDS: SODIUM CHLORIDE 0.9% INJ 10 ML SYR IV ×3 (05:49→12:24)
[2017-10-18] MEDS: DIAPER RELIEF PASTE (DESITIN) 60GM TOP (09:44)
[2017-10-18] MEDS: PANTOPRAZOLE 40MG INJ (PROTONIX) (C9113) IV (09:44)
[2017-10-18] MEDS: PERCOCET 5MG/325MG TAB PO (10:51)
== END 2017-10-18 15:00 | disposition home or self-care (01) | DRG 710 ==
LOC: M ICU 10-08 01:15 → M PCU 10-13 15:55 → M ED 14:30 → M MS5PR 10-15 20:35 → M ED INP 20:31
PROC: 0JD50ZZ Extraction of Left Neck Subcutaneous Tissue and Fascia, Open Approach (ICD-10-PCS; 2017-10-07 21:40)
PROC: 5A1945Z Respiratory Ventilation, 24-96 Consecutive Hours (ICD-10-PCS; principal; 2017-10-07 22:22)
PROC: 0CDXXZ0 Extraction of Lower Tooth, Single, External Approach (ICD-10-PCS; 2017-10-07 22:22)
PROC: 0JB10ZZ Excision of Face Subcutaneous Tissue and Fascia, Open Approach (ICD-10-PCS; 2017-10-07 22:22)
PROC: 02HV33Z Insertion of Infusion Device into Superior Vena Cava, Percutaneous Approach (ICD-10-PCS; 2017-10-07 22:22)
PROC: 0JB50ZZ Excision of Left Neck Subcutaneous Tissue and Fascia, Open Approach (ICD-10-PCS; 2017-10-07 22:22)
DX: A41.9 Sepsis, unspecified organism (principal); J96.00 Acute respiratory failure, unspecified whether with hypoxia or hypercapnia; R65.21 Severe sepsis with septic shock; M72.6 Necrotizing fasciitis; N17.9 Acute kidney failure, unspecified; E87.0 Hyperosmolality and hypernatremia; E87.2 Acidosis; K04.7 Periapical abscess without sinus; F20.9 Schizophrenia, unspecified; F31.9 Bipolar disorder, unspecified; F41.9 Anxiety disorder, unspecified; K59.00 Constipation, unspecified; L02.11 Cutaneous abscess of neck; D64.9 Anemia, unspecified; K21.9 Gastro-esophageal reflux disease without esophagitis; F17.200 Nicotine dependence, unspecified, uncomplicated; K12.2 Cellulitis and abscess of mouth; B95.5 Unspecified streptococcus as the cause of diseases classified elsewhere

== ENCOUNTER 2017-11-27 13:06 | Outpatient (RCR) | payer BC, MEDICAID | END 2017-12-20 | LOC: M OUTALCOH 12-01 09:00 | DX: F12.20 Cannabis dependence, uncomplicated (principal); F16.20 Hallucinogen dependence, uncomplicated; F17.200 Nicotine dependence, unspecified, uncomplicated ==

== ENCOUNTER 2017-12-22 13:28 | Outpatient (RCR) | payer BC, MEDICAID | END 2018-01-19 | LOC: M OUTALCOH 12-24 15:00 | DX: F12.20 Cannabis dependence, uncomplicated (principal); F17.200 Nicotine dependence, unspecified, uncomplicated; F16.20 Hallucinogen dependence, uncomplicated ==

== ENCOUNTER 2018-01-22 11:27 | Outpatient (RCR) | payer BC, MEDICAID | END 2018-02-19 | LOC: M OUTALCOH 11:27 | DX: F12.20 Cannabis dependence, uncomplicated (principal); F16.20 Hallucinogen dependence, uncomplicated; F17.200 Nicotine dependence, unspecified, uncomplicated ==

== ENCOUNTER 2018-01-28 04:04 | Inpatient (IN) | payer BC, MEDICAID ==
[2018-01-28 05:13] LABS: HEMATOCRIT 43.3 % (42.0-52.0); HEMOGLOBIN 14.4 g/dl (13.5-17.5); MEAN CORPUSCULAR HEMOGLOBIN 27.4 pg (27.0-33.0); MEAN CORPUSCULAR HGB CONC 33.3 g/dl (32.0-36.5); MEAN CORPUSCULAR VOLUME 82.3 fl (80.0-96.0); PLATELET COUNT, AUTOMATED 201 10^3/uL (150-450); RED BLOOD COUNT 5.26 10^6/uL (4.30-6.10); RED CELL DISTRIBUTION WIDTH 12.9 % (11.5-14.5); WHITE BLOOD COUNT 10.6 10^3/uL (4.0-10.0)
[2018-01-28 05:38] LABS: AMPHETAMINES LEVEL URINE NEGATIVE (NEGATIVE); BARBITURATES URINE NEGATIVE (NEGATIVE); BENZODIAZEPINES URINE NEGATIVE (NEGATIVE); CANNABINOIDS URINE POSITIVE (NEGATIVE); COCAINE METABOLITE URINE NEGATIVE (NEGATIVE); METHADONE URINE NEGATIVE (NEGATIVE); OPIATES URINE NEGATIVE (NEGATIVE); PHENCYCLIDINE URINE NEGATIVE (NEGATIVE)
[2018-01-28 05:45] LABS: ACETAMINOPHEN LEVEL < 2.0 UG/ML (10.0-30.0); ALBUMIN 4.2 GM/DL (3.2-5.2); ALBUMIN/GLOBULIN RATIO 1.27 (1.00-1.93); ALKALINE PHOSPHATASE 72 U/L (45-117); ALT/SGPT 21 U/L (12-78); ANION GAP 6 MEQ/L (8-16); AST/SGOT 22 U/L (7-37); BILIRUBIN,DIRECT 0.1 MG/DL (0.0-0.2); BILIRUBIN,TOTAL 0.4 MG/DL (0.2-1.0); BLOOD UREA NITROGEN 9 MG/DL (7-18); CALCIUM LEVEL 9.2 MG/DL (8.5-10.1); CARBON DIOXIDE LEVEL 30 MEQ/L (21-32); CHLORIDE LEVEL 111 MEQ/L (98-107); CREATININE FOR GFR 1.04 MG/DL (0.70-1.30); ETHYL ALCOHOL (ETHANOL) < 0.003 % (0.000-0.010); GLOMERULAR FILTRATION RATE > 60.0 (>60); GLUCOSE, FASTING 102 MG/DL (70-100); POTASSIUM SERUM 4.4 MEQ/L (3.5-5.1); SALICYLATE LEVEL 3.6 MG/DL (5.0-30.0); SODIUM LEVEL 147 MEQ/L (136-145); TOTAL PROTEIN 7.5 GM/DL (6.4-8.2)
[2018-01-28] MEDS: PALIPERIDONE 3 MG ER TAB (INVEGA) PO ×2 (15:52→21:30)
[2018-01-28] MEDS: NICOTINE 21MG/24HR 1 EA TRANSDERMAL TD (15:52)
[2018-01-29 07:03] LABS: HEMATOCRIT 46.6 % (42.0-52.0); HEMOGLOBIN 15.7 g/dl (13.5-17.5); MEAN CORPUSCULAR HEMOGLOBIN 27.5 pg (27.0-33.0); MEAN CORPUSCULAR HGB CONC 33.7 g/dl (32.0-36.5); MEAN CORPUSCULAR VOLUME 81.6 fl (80.0-96.0); PLATELET COUNT, AUTOMATED 204 10^3/uL (150-450); RED BLOOD COUNT 5.71 10^6/uL (4.30-6.10); RED CELL DISTRIBUTION WIDTH 13.2 % (11.5-14.5); WHITE BLOOD COUNT 6.4 10^3/uL (4.0-10.0)
[2018-01-29 07:42] LABS: ALBUMIN 4.2 GM/DL (3.2-5.2); ALBUMIN/GLOBULIN RATIO 1.14 (1.00-1.93); ALKALINE PHOSPHATASE 78 U/L (45-117); ALT/SGPT 21 U/L (12-78); ANION GAP 2 MEQ/L (8-16); AST/SGOT 21 U/L (7-37); BILIRUBIN,TOTAL 0.6 MG/DL (0.2-1.0); BLOOD UREA NITROGEN 10 MG/DL (7-18); CALCIUM LEVEL 9.4 MG/DL (8.5-10.1); CARBON DIOXIDE LEVEL 34 MEQ/L (21-32); CHLORIDE LEVEL 107 MEQ/L (98-107); CREATININE FOR GFR 1.13 MG/DL (0.70-1.30); GLOMERULAR FILTRATION RATE > 60.0 (>60); GLUCOSE, FASTING 91 MG/DL (70-100); POTASSIUM SERUM 4.3 MEQ/L (3.5-5.1); SODIUM LEVEL 143 MEQ/L (136-145); TOTAL PROTEIN 7.9 GM/DL (6.4-8.2)
[2018-01-29] MEDS: PALIPERIDONE 3 MG ER TAB (INVEGA) PO ×2 (08:17→20:41)
[2018-01-29] MEDS: NICOTINE 21MG/24HR 1 EA TRANSDERMAL TD (08:17)
[2018-01-29] MEDS ORDERED: MAALOX 30 ML SUSP *UDC PO (13:30)
[2018-01-30] MEDS: NICOTINE 21MG/24HR 1 EA TRANSDERMAL TD (08:09)
[2018-01-30] MEDS: PALIPERIDONE 3 MG ER TAB (INVEGA) PO ×2 (08:09→20:32)
[2018-01-30] MEDS: BACTRIM 160MG/800MG DS TAB PO ×2 (11:37→20:32)
[2018-01-30] MEDS: traZODone 50 MG TAB PO (20:32)
[2018-01-31] MEDS: PALIPERIDONE 3 MG ER TAB (INVEGA) PO ×2 (08:18→21:42)
[2018-01-31] MEDS: NICOTINE 21MG/24HR 1 EA TRANSDERMAL TD (08:18)
[2018-01-31] MEDS: BACTRIM 160MG/800MG DS TAB PO ×2 (08:18→21:42)
[2018-01-31] MEDS: ACETAMINOPHEN TAB 650MG DOSE (2X325MG) PO ×2 (12:14→19:52)
[2018-01-31] MEDS: traZODone 50 MG TAB PO (21:42)
[2018-02-01] MEDS: PALIPERIDONE 3 MG ER TAB (INVEGA) PO ×2 (08:20→20:14)
[2018-02-01] MEDS: BACTRIM 160MG/800MG DS TAB PO ×2 (08:20→20:14)
[2018-02-01] MEDS: NICOTINE 21MG/24HR 1 EA TRANSDERMAL TD (08:21)
[2018-02-01] MEDS: ACETAMINOPHEN TAB 650MG DOSE (2X325MG) PO ×2 (08:24→20:15)
[2018-02-01] MEDS: PALIPERIDONE PALMITATE 156 MG/1ML INJ(INVEGA SUSTENNA)(J2426) IM (10:51)
[2018-02-01] MEDS: MOM 30ML SUSPENSION UDC PO (12:16)
[2018-02-01] MEDS: traZODone 50 MG TAB PO (21:25)
[2018-02-02] MEDS: NICOTINE 21MG/24HR 1 EA TRANSDERMAL TD (08:31)
[2018-02-02] MEDS: PALIPERIDONE 3 MG ER TAB (INVEGA) PO (08:31)
[2018-02-02] MEDS: PALIPERIDONE PALMITATE 156 MG/1ML INJ(INVEGA SUSTENNA)(J2426) IM (10:55)
[2018-02-02] MEDS: hydrOXYzine 50 MG TAB PO (12:08)
== END 2018-02-02 11:45 | disposition home or self-care (01) | DRG 751 ==
LOC: M ED 04:04 → M ED INP 06:22 → M PSY 08:20
DX: F29 Unspecified psychosis not due to a substance or known physiological condition (principal); E87.0 Hyperosmolality and hypernatremia; F60.1 Schizoid personality disorder; Z79.899 Other long term (current) drug therapy; F41.9 Anxiety disorder, unspecified; F60.3 Borderline personality disorder; F17.200 Nicotine dependence, unspecified, uncomplicated; D72.829 Elevated white blood cell count, unspecified

== ENCOUNTER 2018-03-15 01:22 | Emergency (ER) | payer BC ==
[2018-03-15 02:31] LABS: HEMATOCRIT 40.5 % (42.0-52.0); HEMOGLOBIN 13.9 g/dl (13.5-17.5); MEAN CORPUSCULAR HEMOGLOBIN 28.5 pg (27.0-33.0); MEAN CORPUSCULAR HGB CONC 34.3 g/dl (32.0-36.5); MEAN CORPUSCULAR VOLUME 83.2 fl (80.0-96.0); PLATELET COUNT, AUTOMATED 220 10^3/uL (150-450); RED BLOOD COUNT 4.87 10^6/uL (4.30-6.10); RED CELL DISTRIBUTION WIDTH 13.9 % (11.5-14.5); WHITE BLOOD COUNT 10.6 10^3/uL (4.0-10.0)
[2018-03-15 02:50] LABS: AMPHETAMINES LEVEL URINE NEGATIVE (NEGATIVE); BARBITURATES URINE NEGATIVE (NEGATIVE); BENZODIAZEPINES URINE NEGATIVE (NEGATIVE); CANNABINOIDS URINE NEGATIVE (NEGATIVE); COCAINE METABOLITE URINE NEGATIVE (NEGATIVE); METHADONE URINE NEGATIVE (NEGATIVE); OPIATES URINE NEGATIVE (NEGATIVE); PHENCYCLIDINE URINE NEGATIVE (NEGATIVE)
[2018-03-15 02:52] LABS: ALBUMIN 3.9 GM/DL (3.2-5.2); ALBUMIN/GLOBULIN RATIO 1.22 (1.00-1.93); ALKALINE PHOSPHATASE 86 U/L (45-117); ALT/SGPT 32 U/L (12-78); ANION GAP 9 MEQ/L (8-16); AST/SGOT 30 U/L (7-37); BILIRUBIN,DIRECT 0.1 MG/DL (0.0-0.2); BILIRUBIN,TOTAL 0.3 MG/DL (0.2-1.0); BLOOD UREA NITROGEN 13 MG/DL (7-18); CALCIUM LEVEL 8.5 MG/DL (8.5-10.1); CARBON DIOXIDE LEVEL 27 MEQ/L (21-32); CHLORIDE LEVEL 109 MEQ/L (98-107); GLOMERULAR FILTRATION RATE > 60.0 (>60); GLUCOSE, FASTING 104 MG/DL (70-100); POTASSIUM SERUM 3.8 MEQ/L (3.5-5.1); SALICYLATE LEVEL 4.1 MG/DL (5.0-30.0); SODIUM LEVEL 145 MEQ/L (136-145); TOTAL PROTEIN 7.1 GM/DL (6.4-8.2)
[2018-03-15 02:53] LABS: ACETAMINOPHEN LEVEL < 2.0 UG/ML (10.0-30.0)
== END 2018-03-15 04:31 | disposition home or self-care (01) ==
LOC: M ED 01:22
DX: S41.119A Laceration without foreign body of unspecified upper arm, initial encounter (principal); X78.9XXA Intentional self-harm by unspecified sharp object, initial encounter; Y92.89 Other specified places as the place of occurrence of the external cause; F33.9 Major depressive disorder, recurrent, unspecified; F17.210 Nicotine dependence, cigarettes, uncomplicated; Z91.5 Personal history of self-harm; Z79.899 Other long term (current) drug therapy
CPT/HCPCS: G0480

== ENCOUNTER 2019-10-02 13:20 | Emergency (ER) | payer BC ==
[~2019-10-02] VITALS: Ht 182.9 cm; Wt 79.5 kg
[~2019-10-02 13:20] MED LIST changes: +AUGM875T28 PO; +CLEO300C2 PO; +HYDR-3713 PO; +HYDR1TAB33 PO; +IBUP1TAB7 PO; +INVE156I IM; +NAPR250T4 PO; +PALI1TAB2 PO; +PERCOCET PO; +PETROLATUM TOP; +TRAZ1TAB10 PO
[2019-10-02 14:58] VITALS: BP 121/63
== END 2019-10-02 15:00 | disposition home or self-care (01) ==
LOC: M ED 13:20
DX: F10.10 Alcohol abuse, uncomplicated (principal); F60.3 Borderline personality disorder; F19.10 Other psychoactive substance abuse, uncomplicated; F17.200 Nicotine dependence, unspecified, uncomplicated; F32.9 Major depressive disorder, single episode, unspecified; Z63.9 Problem related to primary support group, unspecified